=== PATIENT | male | born 1950 | race Asian ===

== ENCOUNTER 2018-11-02 18:50 | Inpatient (IN) | payer OTHER ==
[~2018-11-02 18:50] MED LIST: Aspirin 81 mg Enteric Coated Tablet ONE; Heparin 10,000 UNITS/ 10 ML VIAL ONE; Iopamidol 370 76% 100 ML VIAL ONE; Metoprolol Tartrate 5 MG/5 ML VIAL ONE; Nitroglycerin 0.4 MG TAB 1 EACH ONE; Nitroglycerin 50 MG/250 ML BOT ONE
[2018-11-02] MEDS ORDERED: Furosemide 40 MG/4 ML VIAL ONE ×2 (19:11)
[2018-11-02 19:12] LABS: Actual Bicarbonate (HCO3a) 19.8 mEq/L (22-28); Analyzer IN Cardio ER; Base Excess (BEa) -9.8 mEq/L (-2.0 to +3.0); CO2 Tension 58.6 mmHg (35.0-45.0); Carboxyhemoglobin (COHb) 0.4 gm% (0.0-3.0); Hemoglobin (Hb) 15.2 g/dL (14.0-18.0); O2 Tension (PaO2) 81.2 mmHg (> 80.0); Potassium - ABG Lab 4.26 mmol/L (3.70-5.30)
[2018-11-02 19:13] LABS: Puncture Site LRA; pH, Arterial 7.15 (7.35-7.45)
[2018-11-02] MEDS ORDERED: Succinylcholine Chloride 20 MG/ML 10 ml SYRINGE FS ONE (19:16)
--- NOTE | 2018-11-02 19:18 | RAD ---
XR Chest 1 View Portable History: Chest pain Comparison: None. Findings: Extensive opacities throughout the lungs, greater on the left. Defibrillator pad projects o olena the right hemithorax. Small effusions. Heart size is enlarged. Dense calcifications of the aorta. There appears to be elevation of the right minor fissure. Abnormal fullness right hilum. Abnormal asy mmetric soft tissue density projects over the right lung apex. Impression: 1. Asymmetric airspace opacities, greater in the left lung, may reflect asymmetric edema or severe pn eumonia. Hemorrhage is also possibility. 2. Abnormal fullness of the right hilum with elevation of the minor fissure and thickening of the rig ht lung apex. Underlying mass is of concern. Nonemergent follow-up chest CT recommended. 3. Possible right peripheral pleural calcified plaques.
[2018-11-02 19:25] LABS: #Basophils 0.1 thou/uL (0.0-0.2); #Eosinphils 0.5 thou/uL (0.0-0.7); #Lymphocytes 5.9 thou/uL (1.20-3.40); #Monocytes 0.9 thou/uL (0.11-0.59); #Neutrophils 5.3 thou/uL (1.40-6.50); %Basophils 0.8 % (0.0-1.0); %Eosinophils 3.7 % (0.0-10.0); %Lymphocytes 46.7 % (21.0-51.0); %Monocytes 7.4 % (0.0-10.0); %Neutrophils 41.4 % (42.0-75.0); Hemoglobin 14.7 g/dL (14.0-18.0); Mean Corpuscular HGB CONC 33.2 g/dL (32.0-36.0); Mean Corpuscular Volume 87.2 fL (78.0-98.0); Mean Platelet Volume 6.8 fL (7.4-10.4); Platelet Count 390 thou/uL (130-400); Red Blood Cell (RBC) Count 5.06 mill/uL (4.70-6.10); White Blood Cell (WBC) Count 12.7 thou/uL (4.8-10.8)
[2018-11-02 19:31] LABS: PTT 29.5 SEC (22.9-36.1); Prothrombin Time 13.2 SEC (12.0-14.7)
[2018-11-02] MEDS ORDERED: fentaNYL Citrate/PF 2,000 MCG in Sodium Chloride 0.9% 60 ML IV SCH ×2 (19:35→21:00)
[2018-11-02] MEDS ORDERED: Fentanyl 100 MCG/2 ML VIAL ONE ×4 (19:38→20:17)
--- NOTE | 2018-11-02 19:48 | RAD ---
XR Chest 1 View Portable History: Intubation Comparison: Radiograph same day Findings: Patient is intubated with endotracheal tube tip at the level of clavicles. Remainder the fi ndings are unchanged. Impression: Enteric tube tip at the level of the clavicles.
[2018-11-02 19:49] LABS: ALT (SGPT) 16 U/L (8-55); AST (SGOT) 19 U/L (5-34); Albumin 4.2 g/dL (3.4-4.8); Alkaline Phosphatase 93 U/L (40-150); Anion Gap 15 mmol/L (10-20); BUN (Urea Nitrogen) 31 mg/dL (8.4-25.7); Bilirubin, Total 0.7 mg/dL (0.2-1.2); CK (CPK) 64 U/L (30-200); Calc. Creatinine Clearance 0 mL/min (70-130); Calcium 9.3 mg/dL (7.8-10.44); Carbon Dioxide 19 mmol/L (23-31); Chloride 106 mmol/L (98-107); Estimated GFR-MDRD 19; Glucose 217 mg/dL (80-115); Potassium 4.2 mmol/L (3.5-5.1); Protein, Total 8.2 g/dL (5.8-8.1); Sodium 136 mmol/L (136-145)
--- NOTE | 2018-11-02 20:14 | HP ---
HISTORY: Mr. Painting is a 68-year-old male from [place], who does not speak [place]. The son states that earlier today he was complaining of shortness of breath, and then, he started to have chest pressure and dramatic worsening of his shortness of breath accompanied with diaphoresis. He came to the emergency room. He has had systolic pressures in the 230 range, heart rate of 100, diaphoretic. Thus far, he has been started on intravenous nitroglycerin, given Lopressor 5 mg IV, aspirin, and started on heparin drip. PAST MEDICAL HISTORY: Hypertension, apparently no history of diabetes or hypercholesterolemia. MEDICATIONS: Amlodipine 10 mg daily. ALLERGIES: NONE KNOWN. PAST SURGICAL HISTORY: Appendectomy. SOCIAL HISTORY: He is a former smoker. REVIEW OF SYSTEMS: Unobtainable with the critical illness of this patient at this time. PHYSICAL EXAMINATION: VITAL SIGNS: Blood pressure down to 180/100, pulse of 100. GENERAL: Elderly gentleman in respiratory distress, profusely diaphoretic. HEENT: PERRL. CHEST: Reveals bilateral crackles. CARDIOVASCULAR: S1 and S2 normal without any S3, S4, or murmurs. ABDOMEN: Normal bowel sounds without tenderness or organomegaly. EXTREMITIES: Revealed no clubbing, cyanosis, or edema. NEUROLOGICAL: Grossly intact. LABORATORY DATA: PH of 7.15, pCO2 of 58.6, pO2 of 81.2. IMAGING STUDIES: EKG reveals sinus tachycardia with left ventricular hypertrophy with strain pattern. Also, there is a [address]-segment elevation in III and F. Chest x-ray reveals pulmonary edema, greater on the left. IMPRESSION: 1. Pulmonary edema. 2. Inferior ST-elevation myocardial infarction. 3. Hypertension. 4. Former smoker. PLAN: The patient will be maintained on intravenous heparin. With his inferior EKG changes, it was felt that he should go to the microbiological laboratory technician emergently for STEMI. However, I do not feel he could adequately lie flat, and he is acidotic at the present time and will be intubated prior to going to the microbiological laboratory technician. Situation has been discussed with the patient's son of cardiac catheterization and its risks including , myocardial infarction, emergent CABG, restenosis, bleeding, kidney damage, allergic reaction to contrast, restenosis, etc. It was explained to him multiple times that his father is acutely ill and certainly may not survive this insult. Job ID: [id number]
[2018-11-02] MEDS ORDERED: Heparin 10,000 UNITS/ 10 ML VIAL SLOW IVP SCH ×2 (20:15→22:30)
[2018-11-02] MEDS ORDERED: Ventilator Sedation Protocol 1 EACH FS SCH (20:16)
[2018-11-02] MEDS ORDERED: Sodium Chloride 0.9% 200 ML IV PRN (20:24)
[2018-11-02] MEDS ORDERED: Acetaminophen/Codeine 30-300mg Tablet PO PRN ×2 (20:24)
[2018-11-02] MEDS ORDERED: Nitroglycerin 0.4 MG TAB (25 Tab Bottle) SL PRN (20:24)
[2018-11-02] MEDS ORDERED: Sodium Chloride 0.9% 1,000 ML IV SCH (20:30)
[2018-11-02] MEDS: Nitroglycerin 50 MG/250 ML BOT 250 ML IVPB SCH (20:35)
[2018-11-02] MEDS ORDERED: Propofol 1,000 MG/100 ML VIAL IV ONE (20:41)
[2018-11-02 20:53] LABS: Actual Bicarbonate (HCO3a) 18.1 mEq/L (22-28); Base Excess (BEa) -9.5 mEq/L (-2.0 to +3.0); CO2 Tension 46.2 mmHg (35.0-45.0); Calcium, Ionized 1.07 mmol/L (1.12-1.30); Carboxyhemoglobin (COHb) 0.4 gm% (0.0-3.0); Hemoglobin (Hb) 12.5 g/dL (14.0-18.0); Potassium - ABG Lab 5.17 mmol/L (3.70-5.30)
[2018-11-02] MEDS ORDERED: DISCONTINUE PREVIOUS NARCOTIC PAIN MEDICATIONS AND BENZODIAZEPINES FS SCH (21:00)
[2018-11-02] MEDS ORDERED: Fentanyl BOLUS 250 ML IVPB PRN (21:00)
[2018-11-02] MEDS ORDERED: Propofol BOLUS 1,000 MG/100 ML VIAL IV PRN (21:00)
[2018-11-02 21:01] LABS: O2 Tension (PaO2) 597.7 mmHg (> 80.0); Puncture Site LINE; pH, Arterial 7.21 (7.35-7.45)
[2018-11-02] MEDS ORDERED: Vecuronium 10 MG VIAL IV PRN (21:28)
[2018-11-02] MEDS: Heparin 25,000 units/D5W 500 ML IV SCH (22:28)
[2018-11-03 01:53] LABS: PTT Greater than 250.0 SEC (22.9-36.1)
[2018-11-03 04:44] LABS: Hemoglobin A1c 6.6 % (4.0-6.0)
[2018-11-03 04:59] LABS: #Lymphocytes 2.3 thou/uL (1.20-3.40); #Monocytes 0.7 thou/uL (0.11-0.59); #Neutrophils 5.2 thou/uL (1.40-6.50); %Basophils 0.1 % (0.0-1.0); %Eosinophils 0.5 % (0.0-10.0); %Lymphocytes 27.7 % (21.0-51.0); %Monocytes 8.8 % (0.0-10.0); %Neutrophils 62.9 % (42.0-75.0); Hemoglobin 11.5 g/dL (14.0-18.0); Mean Corpuscular HGB CONC 35.4 g/dL (32.0-36.0); Mean Corpuscular Hemoglobin 30.4 pg (27.0-31.0); Mean Corpuscular Volume 85.9 fL (78.0-98.0); Mean Platelet Volume 6.5 fL (7.4-10.4); Platelet Count 267 thou/uL (130-400); Red Blood Cell (RBC) Count 3.78 mill/uL (4.70-6.10); White Blood Cell (WBC) Count 8.2 thou/uL (4.8-10.8)
[2018-11-03 05:00] LABS: Anion Gap 13 mmol/L (10-20); BUN (Urea Nitrogen) 33 mg/dL (8.4-25.7); Calc. Creatinine Clearance 22 mL/min (70-130); Carbon Dioxide 20 mmol/L (23-31); Cardiac Risk 6.1 (Less than 4.5); Chloride 108 mmol/L (98-107); Cholesterol 207 mg/dl (< 200 Desired); Estimated GFR-MDRD 22; Glucose 112 mg/dL (80-115); HDL Cholesterol 34 mg/dL (>60 Neg Risk); LDL Cholesterol, Calculated 126 mg/dL; Sodium 137 mmol/L (136-145); Triglycerides 236 mg/dL (Less than 150)
[2018-11-03] MEDS: Propofol 1,000 MG/100 ML VIAL IV PRN ×4 (05:06→22:20)
[2018-11-03 07:33] LABS: Actual Bicarbonate (HCO3a) 20.6 mEq/L (22-28); Base Excess (BEa) -2.3 mEq/L (-2.0 to +3.0); CO2 Tension 29.5 mmHg (35.0-45.0); Carboxyhemoglobin (COHb) 0.9 gm% (0.0-3.0); Hemoglobin (Hb) 11.1 g/dL (14.0-18.0); pH, Arterial 7.46 (7.35-7.45)
[2018-11-03 07:34] LABS: O2 Tension (PaO2) 45.6 mmHg (> 80.0); Puncture Site ALINE
[2018-11-03 07:35] LABS: ALV-art Gradient 202.725 (0-20)
--- NOTE | 2018-11-03 07:50 | RAD ---
Chest one view: HISTORY: Respiratory insufficiency COMPARISON: 11/02/2018 FINDINGS: NG tube and endotracheal tubes in position. Homogeneously dense appearance to the left chest probably a combination of alveolar edema and pleural effusion. Stable appearing changes in the right chest. IMPRESSION: Extensive pulmonary parenchymal changes throughout the left lung with stable appearance to the right chest. Continued short-term follow-up.
[2018-11-03] MEDS ORDERED: Prevnar 13-Val Conj/PF 0.5 ML SYRINGE IM ONE (09:00)
[2018-11-03] MEDS: cefTRIAXone\\ROCEPHIN 2 GM in Sodium Chloride 0.9% 100 ML IVPB SCH (10:07)
--- NOTE | 2018-11-03 10:12 | CON ---
DATE OF CONSULTATION: HISTORY OF PRESENT ILLNESS: Mr. Painting is a 68-year-old male, who has been feeling poorly for a couple of days according to his son. He presented to the emergency department, was found to have ST elevation on EKG as well as significant hypertension. He was taken to the cardiac cath lab radiology technologist. He required intubation. He is sedated for mechanical ventilation. PAST MEDICAL HISTORY: Remarkable for hypertension, on amlodipine and appendectomy. He is a former smoker, not a daily drinker. He had a wedge resection of a nodule in his right lung in 1987 that was benign. ALLERGIES: HE HAS NO REPORTED DRUG ALLERGIES. REVIEW OF SYSTEMS: Not obtainable. PHYSICAL EXAMINATION: VITAL SIGNS: Blood pressure is 137/70, heart rate is in the 60s, respiratory rate is 24, oximetry is 100%. HEENT: Pupils are equal. Sclerae are anicteric. NECK: Supple. LUNGS: Clear. HEART: Regular rhythm. S1 and S2 are normal. ABDOMEN: Soft and nontender. EXTREMITIES: Without clubbing, cyanosis, or edema. NEUROLOGIC: Grossly nonfocal. IMAGING STUDIES: Chest radiograph shows asymmetric alveolar infiltrates fairly dense on the left. IMPRESSION AND PLAN: 1. Pneumonia. It is an atypical presentation for pulmonary hemorrhage or pulmonary edema. We cultured an endotracheal aspirate, and start him on Rocephin. 2. Myocardial infarction with coronary artery disease. His son says it is not something that can be addressed with surgery per his discussion with Dr. Huston last night. I reviewed the case with Dr. Huston. We will continue with antibiotics and mechanical ventilation for now. Gentle diuresis is reasonable. If his radiograph dramatically improves on a daily basis, I would argue against this being an infectious infiltrate. Job ID: [id number]
[2018-11-03 10:59] LABS: Troponin I 0.916 ng/mL (< 0.028)
[2018-11-03 15:23] LABS: Troponin I 0.939 ng/mL (< 0.028)
[2018-11-03] MEDS: Lorazepam 2 MG/ML VIAL SLOW IVP PRN ×2 (15:59→23:06)
[2018-11-03] MEDS: Carvedilol 3.125 MG TAB PER TUBE SCH (16:41)
[2018-11-04 05:19] LABS: #Eosinphils 0.3 thou/uL (0.0-0.7); #Lymphocytes 2.8 thou/uL (1.20-3.40); #Monocytes 0.9 thou/uL (0.11-0.59); #Neutrophils 5.6 thou/uL (1.40-6.50); %Basophils 0.3 % (0.0-1.0); %Eosinophils 3.1 % (0.0-10.0); %Lymphocytes 28.9 % (21.0-51.0); %Monocytes 9.5 % (0.0-10.0); %Neutrophils 58.1 % (42.0-75.0); Mean Corpuscular HGB CONC 34.9 g/dL (32.0-36.0); Mean Corpuscular Hemoglobin 29.7 pg (27.0-31.0); Mean Platelet Volume 7.1 fL (7.4-10.4); Platelet Count 260 thou/uL (130-400); RBC Distribution Width 12.1 % (11.5-14.5); Red Blood Cell (RBC) Count 3.69 mill/uL (4.70-6.10); White Blood Cell (WBC) Count 9.6 thou/uL (4.8-10.8)
[2018-11-04 05:37] LABS: Anion Gap 18 mmol/L (10-20); BUN (Urea Nitrogen) 34 mg/dL (8.4-25.7); Calc. Creatinine Clearance 21 mL/min (70-130); Calcium 7.9 mg/dL (7.8-10.44); Carbon Dioxide 20 mmol/L (23-31); Chloride 107 mmol/L (98-107); Estimated GFR-MDRD 21; Glucose 111 mg/dL (80-115); Potassium 3.5 mmol/L (3.5-5.1); Sodium 141 mmol/L (136-145)
[2018-11-04 05:48] LABS: Band 2 % (5-11); Hypochromia SLIGHT = 6-15 cells (100X) (0-5/hpf); Lymphocytes 22 % (21-51); MDiff Complete? YES; Mean Corpuscular HGB CONC 34.1 g/dL (32.0-36.0); Mean Corpuscular Hemoglobin 29.3 pg (27.0-31.0); Mean Corpuscular Volume 86.1 fL (78.0-98.0); Mean Platelet Volume 7.2 fL (7.4-10.4); Monocytes 2 % (0-10); Neutrophil 74 % (42-75); Platelet Count 279 thou/uL (130-400); Platelet Morphology Comment Appears Adequate; RBC Distribution Width 12.1 % (11.5-14.5); Red Blood Cell (RBC) Count 3.73 mill/uL (4.70-6.10); White Blood Cell (WBC) Count 9.5 thou/uL (4.8-10.8)
--- NOTE | 2018-11-04 06:26 | RAD ---
CHEST ONE VIEW: INDICATIONS: Daily CCU examination. COMPARISON: 11/03/2018 IMPRESSION: Gastric catheter and ET tube tip are unchanged. Pulmonary parenchymal changes involving the left jessica g slightly improved. Residual opacities remain within the left lower lobe. No definite pneumothorax is evident. Continued followup is recommended. POS: BH
[2018-11-04 07:31] LABS: Actual Bicarbonate (HCO3a) 19.2 mEq/L (22-28); Base Excess (BEa) -2.2 mEq/L (-2.0 to +3.0); Calcium, Ionized 1.02 mmol/L (1.12-1.30); Carboxyhemoglobin (COHb) 0.4 gm% (0.0-3.0); Hemoglobin (Hb) 11.5 g/dL (14.0-18.0); Potassium - ABG Lab 3.34 mmol/L (3.70-5.30); pH, Arterial 7.52 (7.35-7.45)
[2018-11-04 07:33] LABS: CO2 Tension 23.8 mmHg (35.0-45.0); O2 Tension (PaO2) 56.3 mmHg (> 80.0); Puncture Site ALINE
[2018-11-04] MEDS: Propofol 1,000 MG/100 ML VIAL IV PRN ×3 (08:39→23:17)
[2018-11-04] MEDS: Lorazepam 2 MG/ML VIAL SLOW IVP PRN ×2 (08:39→12:18)
[2018-11-04] MEDS: Carvedilol 3.125 MG TAB PER TUBE SCH ×2 (08:39→17:28)
[2018-11-04] MEDS: cefTRIAXone\\ROCEPHIN 2 GM in Sodium Chloride 0.9% 100 ML IVPB SCH (10:52)
[2018-11-04] MEDS: Heparin 25,000 units/D5W 500 ML IV SCH (10:58)
[2018-11-04] MEDS ORDERED: Pantoprazole 40 MG VIAL IVP SCH (12:00)
[2018-11-04] MEDS: Atorvastatin Calcium 40 MG TAB PER TUBE SCH (21:55)
--- NOTE | 2018-11-04 22:15 | PRG ---
DATE OF SERVICE: 11/04/2018 SUBJECTIVE: Mr. Painting's gas exchange is improving. Hemodynamically, he has been stable. He is afebrile, heart rate in the 70s, blood pressure 137/88, respiratory rate is 20. A specimen for sputum culture was ordered the day before yesterday, but I do not see where this is pending in the computer. OBJECTIVE: LUNGS: Clear. HEART: Regular rhythm. S1 and S2 are normal. ABDOMEN: Soft and nontender without guarding or rigidity. EXTREMITIES: Without asymmetry. LABORATORY DATA: White count 9.5, hemoglobin 11.0, platelets 279. Sodium 141, potassium 3.5, chloride 107, bicarb 20, BUN 34, creatinine 3.02. PH CO2 23, pO2 56. His ventilatory rate has been turned down. His PEEP has been turned down. Chest x-ray reviewed by me shows significant improvement. IMPRESSION: Given his improvement in his radiograph, most likely his radiographic abnormalities are an atypical presentation for cardiogenic pulmonary edema. Tomorrow, we will probably do a spontaneous breathing trial. We will probably stop his IV antibiotics tomorrow as well. CRITICAL CARE TIME: 30 minutes. Job ID: [id number]
[2018-11-05 05:19] LABS: Band 1 % (5-11); Eosinophils 4 % (0-10); Lymphocytes 22 % (21-51); MDiff Complete? YES; Mean Corpuscular HGB CONC 33.9 g/dL (32.0-36.0); Mean Corpuscular Hemoglobin 29.8 pg (27.0-31.0); Mean Platelet Volume 7.2 fL (7.4-10.4); Monocytes 11 % (0-10); Neutrophil 62 % (42-75); Platelet Count 283 thou/uL (130-400); Platelet Morphology Comment Appears Adequate; RBC Distribution Width 12.3 % (11.5-14.5); White Blood Cell (WBC) Count 9.9 thou/uL (4.8-10.8)
[2018-11-05 05:28] LABS: Anion Gap 17 mmol/L (10-20); BUN (Urea Nitrogen) 29 mg/dL (8.4-25.7); Calc. Creatinine Clearance 21 mL/min (70-130); Calcium 8.1 mg/dL (7.8-10.44); Carbon Dioxide 19 mmol/L (23-31); Chloride 107 mmol/L (98-107); Estimated GFR-MDRD 21; Glucose 98 mg/dL (80-115); Potassium 3.6 mmol/L (3.5-5.1); Sodium 139 mmol/L (136-145)
[2018-11-05 07:17] LABS: Actual Bicarbonate (HCO3a) 16.9 mEq/L (22-28); Base Excess (BEa) -5.8 mEq/L (-2.0 to +3.0); Calcium, Ionized 0.99 mmol/L (1.12-1.30); Carboxyhemoglobin (COHb) 0.3 gm% (0.0-3.0); Hemoglobin (Hb) 12.3 g/dL (14.0-18.0); O2 Tension (PaO2) 64.4 mmHg (> 80.0); Potassium - ABG Lab 3.62 mmol/L (3.70-5.30); pH, Arterial 7.43 (7.35-7.45)
[2018-11-05 07:23] LABS: Puncture Site ALINE
--- NOTE | 2018-11-05 07:44 | RAD ---
CHEST 1 VIEW: INDICATION: Intubation. COMPARISON: Prior exam dated 11/04/2018. FINDINGS: ET tube and gastric catheter are unchanged. Interstitial airspace opacities persist within the left lung. No pneumothorax is evident. The patient remains rotated slightly limiting exam. IMPRESSION: Stable exam. POS: BH
[2018-11-05] MEDS: Pantoprazole 40 MG VIAL IVP SCH (08:35)
[2018-11-05] MEDS: Carvedilol 6.25 MG TAB PER TUBE SCH ×2 (08:35→17:24)
[2018-11-05] MEDS: cefTRIAXone\\ROCEPHIN 2 GM in Sodium Chloride 0.9% 100 ML IVPB SCH (08:43)
[2018-11-05] MEDS: Propofol 1,000 MG/100 ML VIAL IV PRN ×2 (08:43→15:27)
[2018-11-05] MEDS: Sodium Chloride 0.9% (PF) 10 ML VIAL FS SCH (08:44)
[2018-11-05 09:45] LABS: Actual Bicarbonate (HCO3a) 15.8 mEq/L (22-28); Base Excess (BEa) -8.6 mEq/L (-2.0 to +3.0); CO2 Tension 30.1 mmHg (35.0-45.0); Calcium, Ionized 1.01 mmol/L (1.12-1.30); Hemoglobin (Hb) 13.6 g/dL (14.0-18.0); Potassium - ABG Lab 3.83 mmol/L (3.70-5.30); pH, Arterial 7.34 (7.35-7.45)
[2018-11-05 09:47] LABS: ALV-art Gradient 268.575 (0-20); O2 Tension (PaO2) 50.3 mmHg (> 80.0); Puncture Site ALINE
[2018-11-05] MEDS ORDERED: Furosemide 40 MG/4 ML VIAL IVP SCH (10:57)
--- NOTE | 2018-11-05 11:19 | PRG ---
DATE OF SERVICE: 11/05/2018 SUBJECTIVE: Mr. Painting was given a sedation holiday, this morning became hypertensive and developed clinical findings consistent with pulmonary edema, so he was re-sedated. His ventilator was adjusted to pressure control ventilation. OBJECTIVE: VITAL SIGNS: Currently, his blood pressure 116/60, heart rate 87, and respiratory rates in the 20s. LUNGS: Remarkable for rhonchi bilaterally. HEART: Regular rhythm. S1 and S2 are normal. ABDOMEN: Soft and nontender. EXTREMITIES: Without clubbing, cyanosis, or edema. LABORATORY DATA: White count 9.9, hemoglobin 11.0, platelets 283. Sodium 139, potassium 3.6, chloride 107, bicarb 19, BUN 29, and creatinine 2.99. IMPRESSION: 1. Congestive heart failure. 2. Inoperable coronary artery disease. 3. ST-elevation myocardial infarction. 4. Chronic kidney disease, likely related to vascular disease. 5. Diabetes. I met with the family, answered all their questions. We will try probably in the morning placing him on a Cardene drip before we give him a sedation holiday to see if we can control his blood pressure and facilitate weaning that way. Intake and output coming in today was positive 327. He probably benefit from a dose of Lasix this morning. Job ID: [id number]
[2018-11-05] MEDS: Lorazepam 2 MG/ML VIAL SLOW IVP PRN ×2 (13:24→21:48)
[2018-11-05] MEDS: Morphine 2 MG/ML SYRINGE SLOW IVP PRN (15:27)
[2018-11-05] MEDS: Atorvastatin Calcium 40 MG TAB PER TUBE SCH (20:12)
[2018-11-06] MEDS: Propofol 1,000 MG/100 ML VIAL IV PRN ×4 (00:53→20:22)
[2018-11-06 06:25] LABS: Anion Gap 24 mmol/L (10-20); BUN (Urea Nitrogen) 34 mg/dL (8.4-25.7); Calc. Creatinine Clearance 18 mL/min (70-130); Calcium 8.3 mg/dL (7.8-10.44); Carbon Dioxide 15 mmol/L (23-31); Chloride 104 mmol/L (98-107); Estimated GFR-MDRD 18; Glucose 110 mg/dL (80-115); Potassium 3.6 mmol/L (3.5-5.1); Sodium 139 mmol/L (136-145)
[2018-11-06 06:30] LABS: Hemoglobin 11.1 g/dL (14.0-18.0); Mean Corpuscular HGB CONC 35.2 g/dL (32.0-36.0); Mean Corpuscular Hemoglobin 30.6 pg (27.0-31.0); Mean Corpuscular Volume 86.9 fL (78.0-98.0); Mean Platelet Volume 7.1 fL (7.4-10.4); Platelet Count 273 thou/uL (130-400); Red Blood Cell (RBC) Count 3.62 mill/uL (4.70-6.10); White Blood Cell (WBC) Count 8.4 thou/uL (4.8-10.8)
[2018-11-06 06:34] LABS: Band 2 % (5-11); Eosinophils 7 % (0-10); Lymphocytes 19 % (21-51); MDiff Complete? YES; Monocytes 11 % (0-10); Neutrophil 61 % (42-75)
[2018-11-06 07:04] LABS: Actual Bicarbonate (HCO3a) 13.1 mEq/L (22-28); Base Excess (BEa) -7.7 mEq/L (-2.0 to +3.0); Calcium, Ionized 1.06 mmol/L (1.12-1.30); Carboxyhemoglobin (COHb) 0.4 gm% (0.0-3.0); Hemoglobin (Hb) 11.4 g/dL (14.0-18.0); O2 Tension (PaO2) 209.9 mmHg (> 80.0); Potassium - ABG Lab 3.51 mmol/L (3.70-5.30); pH, Arterial 7.51 (7.35-7.45)
[2018-11-06 07:12] LABS: CO2 Tension 16.9 mmHg (35.0-45.0); Puncture Site RRA
[2018-11-06 07:13] LABS: ALV-art Gradient 125.475 (0-20)
--- NOTE | 2018-11-06 07:54 | RAD ---
Chest AP view INDICATION: Chest pain COMPARISON: November 05, 2018 FINDINGS: Lungs:There is improvement in the bilateral perihilar opacities, left greater than right. Cardiac silhouette:The cardiomediastinal silhouette appears within normal limits. Pulmonary vasculature:Normal Pleural spaces:No pleural effusion or pneumothorax is demonstrated. Upper abdomen:No abnormality seen. Osseous structures: No acute osseous abnormality. Additional findings:ET tube and gastric catheter unchanged. IMPRESSION: Improving bilateral perihilar opacities. Continued follow-up is recommended
[2018-11-06] MEDS: cefTRIAXone\\ROCEPHIN 2 GM in Sodium Chloride 0.9% 100 ML IVPB SCH (08:05)
[2018-11-06] MEDS: Carvedilol 6.25 MG TAB PER TUBE SCH ×2 (08:06→16:55)
[2018-11-06] MEDS: Pantoprazole 40 MG VIAL IVP SCH (08:06)
[2018-11-06] MEDS: Sodium Chloride 0.9% (PF) 10 ML VIAL FS SCH (08:07)
[2018-11-06] MEDS: Aspirin 325 MG TAB PER TUBE SCH (09:08)
--- NOTE | 2018-11-06 19:54 | PRG ---
DATE OF SERVICE: 11/06/2018 SUBJECTIVE: Mr. Painting remains intubated. OBJECTIVE: VITAL SIGNS: Blood pressures have been stable, heart rate in the 80s, respiratory rate in the teens, and oximetry is in the high 90s. LUNGS: Clear anteriorly. HEART: Regular rhythm. ABDOMEN: Soft. EXTREMITIES: Without edema. LABORATORY DATA: White count 8.4, hemoglobin 11.1, platelets 273. A pH this morning 7.51, CO2 of 17, and pO2 of 209. His pressure ventilated and with pressure control, his tidal volumes had increased overnight as he was diuresing and having which led to improve pulmonary compliance. His creatinine is 3.43 today, was 3.02 two days ago. Chest radiograph shows minimal pulmonary edema. IMPRESSION: 1. Congestive heart failure with respiratory failure. 2. Inoperable coronary artery disease. 3. Chronic kidney disease, likely related to renovascular disease. 4. Severe aortoiliac disease. PLAN: We will probably continue decreased ventilatory support and proceed slowly. If we can get him where he is comfortable on Precedex and not hypertensive, we would consider weaning and extubation. His prognosis is quite guarded. Job ID: [id number]
[2018-11-06] MEDS: Atorvastatin Calcium 40 MG TAB PER TUBE SCH (22:00)
[2018-11-07] MEDS: Propofol 1,000 MG/100 ML VIAL IV PRN ×2 (02:23→06:35)
[2018-11-07 05:27] LABS: Band 3 % (5-11); Eosinophils 7 % (0-10); Hemoglobin 11.9 g/dL (14.0-18.0); Lymphocytes 23 % (21-51); MDiff Complete? YES; Mean Corpuscular HGB CONC 34.1 g/dL (32.0-36.0); Mean Corpuscular Hemoglobin 30.3 pg (27.0-31.0); Mean Corpuscular Volume 88.7 fL (78.0-98.0); Mean Platelet Volume 6.9 fL (7.4-10.4); Monocytes 10 % (0-10); Neutrophil 57 % (42-75); Platelet Count 299 thou/uL (130-400); Platelet Morphology Comment Appears Adequate; Red Blood Cell (RBC) Count 3.95 mill/uL (4.70-6.10); White Blood Cell (WBC) Count 9.1 thou/uL (4.8-10.8)
[2018-11-07 05:32] LABS: Anion Gap 23 mmol/L (10-20); BUN (Urea Nitrogen) 37 mg/dL (8.4-25.7); Calc. Creatinine Clearance 20 mL/min (70-130); Calcium 9.1 mg/dL (7.8-10.44); Carbon Dioxide 15 mmol/L (23-31); Chloride 107 mmol/L (98-107); Estimated GFR-MDRD 19; Glucose 88 mg/dL (80-115); Potassium 4.1 mmol/L (3.5-5.1); Sodium 141 mmol/L (136-145)
[2018-11-07 06:43] LABS: Actual Bicarbonate (HCO3a) 15.9 mEq/L (22-28); Base Excess (BEa) -8.6 mEq/L (-2.0 to +3.0); CO2 Tension 29.9 mmHg (35.0-45.0); Calcium, Ionized 1.13 mmol/L (1.12-1.30); Carboxyhemoglobin (COHb) 0.4 gm% (0.0-3.0); Hemoglobin (Hb) 11.4 g/dL (14.0-18.0); O2 Tension (PaO2) 73.4 mmHg (> 80.0); Potassium - ABG Lab 3.97 mmol/L (3.70-5.30); Puncture Site RRA; pH, Arterial 7.34 (7.35-7.45)
[2018-11-07 06:44] LABS: ALV-art Gradient 174.425 (0-20)
[2018-11-07] MEDS: Aspirin 325 MG TAB PER TUBE SCH (07:48)
[2018-11-07] MEDS: Carvedilol 6.25 MG TAB PER TUBE SCH ×2 (07:48→16:56)
[2018-11-07] MEDS: Nitroglycerin 50 MG/250 ML BOT 250 ML IVPB SCH (07:48)
[2018-11-07] MEDS: Pantoprazole 40 MG VIAL IVP SCH (07:49)
[2018-11-07] MEDS: Sodium Chloride 0.9% (PF) 10 ML VIAL FS SCH (07:49)
[2018-11-07] MEDS: cefTRIAXone\\ROCEPHIN 2 GM in Sodium Chloride 0.9% 100 ML IVPB SCH (09:25)
--- NOTE | 2018-11-07 09:37 | RAD ---
Exam: Chest one view: HISTORY: Respiratory insufficiency, patient on ventilator COMPARISON: 11/06/2018 FINDINGS: Fairly extensive pleural and parenchymal opacity changes in the right chest since the prior study wit h marked new volume loss raising concern for new right-sided atelectasis. Increased markings in the left chest and evidence for some vascular congestion probably mild interstitial edema. NG tube and en dotracheal tubes are stable. IMPRESSION: New extensive right-sided volume loss evidence for atelectasis with chronic pleural and parenchymal c hanges. Increased interstitial markings in the left chest raising concern for some developing interstitial ed kavita. CODE T
--- NOTE | 2018-11-07 18:05 | PRG ---
DATE OF SERVICE: 11/07/2018 SUBJECTIVE: Malini Painting has done well this morning. He was placed on Precedex and then as he awakened his blood pressure gradually started increasing and his sats started dropping. His nurse, Niranjan astutely started him on nitroglycerin drip and cranked up this dose which led to stabilization of all of his vital signs. His hemodynamics have been stable this afternoon. OBJECTIVE: VITAL SIGNS: His blood pressure 116/82, heart rate 88, respiratory rate 17, oximetry is 94. LUNGS: Clear. HEART: Regular rhythm. ABDOMEN: Soft. LABORATORY DATA: White count 9.1, hemoglobin 11.9, platelets 299. Sodium 141, potassium 4.1, chloride 107, bicarb 15, BUN 37, and creatinine 3.21. IMPRESSION: 1. Severe coronary artery disease. 2. Severe peripheral vascular disease. 3. Congestive heart failure leading to intubation. I met with his son and answered all of his questions. He actually may have a mucus plug on today's chest radiograph, but we will continue with current mechanical ventilation with a minimum of pressure support and PEEP. If he has a good 24 hours, then we will consider extubation. He may require therapeutic suctioning prior to extubation if his radiographic abnormalities are persistent tomorrow. CRITICAL CARE TIME: 30 minutes. Job ID: [id number]
[2018-11-07] MEDS: Atorvastatin Calcium 40 MG TAB PER TUBE SCH (20:21)
[2018-11-08] MEDS: Nitroglycerin 50 MG/250 ML BOT 250 ML IVPB SCH (04:37)
[2018-11-08 06:17] LABS: Band 5 % (5-11); Eosinophils 3 % (0-10); Hemoglobin 11.3 g/dL (14.0-18.0); Lymphocytes 16 % (21-51); MDiff Complete? YES; Mean Corpuscular HGB CONC 34.3 g/dL (32.0-36.0); Mean Corpuscular Hemoglobin 30.3 pg (27.0-31.0); Mean Corpuscular Volume 88.4 fL (78.0-98.0); Mean Platelet Volume 6.8 fL (7.4-10.4); Monocytes 14 % (0-10); Neutrophil 62 % (42-75); Platelet Count 324 thou/uL (130-400); Platelet Morphology Comment Appears Adequate; Red Blood Cell (RBC) Count 3.72 mill/uL (4.70-6.10); White Blood Cell (WBC) Count 9.8 thou/uL (4.8-10.8)
[2018-11-08 06:20] LABS: Anion Gap 23 mmol/L (10-20); BUN (Urea Nitrogen) 41 mg/dL (8.4-25.7); Calc. Creatinine Clearance 21 mL/min (70-130); Calcium 9.1 mg/dL (7.8-10.44); Carbon Dioxide 13 mmol/L (23-31); Chloride 109 mmol/L (98-107); Estimated GFR-MDRD 21; Glucose 122 mg/dL (80-115); Potassium 4.7 mmol/L (3.5-5.1); Sodium 140 mmol/L (136-145)
[2018-11-08 07:00] LABS: Actual Bicarbonate (HCO3a) 13.4 mEq/L (22-28); Base Excess (BEa) -11.2 mEq/L (-2.0 to +3.0); CO2 Tension 26.7 mmHg (35.0-45.0); Calcium, Ionized 1.18 mmol/L (1.12-1.30); Carboxyhemoglobin (COHb) 0.3 gm% (0.0-3.0); Hemoglobin (Hb) 11.1 g/dL (14.0-18.0); O2 Tension (PaO2) 71.9 mmHg (> 80.0); pH, Arterial 7.32 (7.35-7.45)
[2018-11-08 07:04] LABS: Puncture Site RRA
[2018-11-08 07:05] LABS: ALV-art Gradient 179.925 (0-20)
[2018-11-08] MEDS: Aspirin 325 MG TAB PER TUBE SCH (08:36)
[2018-11-08] MEDS: Carvedilol 6.25 MG TAB PER TUBE SCH ×2 (08:36→17:02)
[2018-11-08] MEDS: cefTRIAXone\\ROCEPHIN 2 GM in Sodium Chloride 0.9% 100 ML IVPB SCH (08:38)
[2018-11-08] MEDS: Pantoprazole 40 MG VIAL IVP SCH (08:38)
[2018-11-08] MEDS: Sodium Chloride 0.9% (PF) 10 ML VIAL FS SCH (08:42)
--- NOTE | 2018-11-08 09:49 | RAD ---
FRONTAL RADIOGRAPH CHEST: Date: 11/08/18 COMPARISON: 11/07/18. HISTORY: Ventilated patient. FINDINGS: Stable endotracheal tube and nasogastric tube. There is a lobulated dense pleural based opacity within the right hemithorax which has significantly worsened when compared to 11/06/18 and is similar when compared to 11/07/18. There is volume loss inv olving the right hemithorax. Left lung appears grossly unremarkable. IMPRESSION: Worsening lobulated pleural based opacity within the right hemithorax. This is similar when compared to 11/07/18 and significantly worsened since 11/06/18. CT chest may be beneficial to evaluate nonspec ific pleural based process within the right hemithorax. POS: OFF
[2018-11-08] MEDS ORDERED: methylPREDNISolone Sod Succ/PF 125 MG/2 ML VIAL IVP SCH (10:15)
[2018-11-08] MEDS: guaiFENesin ER 600 MG TAB PO SCH ×2 (12:03→17:02)
[2018-11-08] MEDS: Cefepime 1 GM in Sodium Chloride 0.9% 100 ML IVPB SCH (12:29)
--- NOTE | 2018-11-08 16:21 | PRG ---
DATE OF SERVICE: 11/08/2018 SUBJECTIVE: Mr. Painting evaluated this morning. He will awake and follow commands. Appears comfortable. He has not had a recurrent pulmonary edema, but he does have radiographic appearance of an effusion on the right, some atelectasis. I recommended bronchoscopy. OBJECTIVE: VITAL SIGNS: Blood pressure 107/77, heart rate 83, respiratory rate 16. Intake and outputs negative 314. HEART: Regular rhythm. ABDOMEN: Soft. LUNGS: Remarkable for rhonchi on the right. EXTREMITIES: Without clubbing, cyanosis, or edema. LABORATORY DATA: White count 9.8, hemoglobin 11.3, platelets 324. Sodium 140, potassium 4.7, chloride 109, bicarb 13, BUN 41, creatinine 3.02. PH of 7.32, CO2 of 26, pO2 of 71. IMPRESSION: 1. Respiratory failure secondary to coronary artery disease, myocardial infarction status post emergent cardiac catheterization. 2. Inoperable coronary artery disease. 3. Mild left ventricular systolic dysfunction and diastolic dysfunction. 4. Right pleural effusion ? versus atelectasis secondary to mucus plugging. 5. Severe peripheral vascular disease. I met with the son and answered all his questions. I recommended bronchoscopy. Son gave consent for that. Also recommended that he not be extubated. He has metabolic acidosis that is most likely the result of his renal insufficiency and chronic kidney disease and also probably has significant mucus plugging, which may make his work of breathing greater. He is status post pulmonary edema with discontinuing sedation. We have placed him on nitroglycerin and Precedex, which has kept his blood pressure controlled and we have avoided pulmonary edema for couple of days. He is on minimal ventilatory support. I will recommend a repeat radiograph in the morning and then reassessment for potential weaning, but depending on bronchoscopy, I felt weaning was not advisable and ensure enough he did have extensive right lung mucus plugging, which was sent for cultures. I changed antibiotics after the bronchoscopy. Job ID: [id number]
[2018-11-08] MEDS: Atorvastatin Calcium 40 MG TAB PER TUBE SCH (20:25)
[2018-11-08] MEDS ORDERED: Cefepime 1 GM in Sodium Chloride 0.9% 100 ML IVPB SCH (21:00)
[2018-11-09] MEDS: Cefepime 1 GM in Sodium Chloride 0.9% 100 ML IVPB SCH ×2 (00:36→13:07)
[2018-11-09] MEDS: guaiFENesin ER 600 MG TAB PO SCH ×4 (00:38→17:11)
[2018-11-09] MEDS: Nitroglycerin 50 MG/250 ML BOT 250 ML IVPB SCH (00:50)
[2018-11-09 06:07] LABS: Anion Gap 16 mmol/L (10-20); BUN (Urea Nitrogen) 48 mg/dL (8.4-25.7); Calc. Creatinine Clearance 21 mL/min (70-130); Carbon Dioxide 17 mmol/L (23-31); Chloride 109 mmol/L (98-107); Estimated GFR-MDRD 21; Glucose 236 mg/dL (80-115); Potassium 4.8 mmol/L (3.5-5.1); Sodium 137 mmol/L (136-145)
[2018-11-09 06:18] LABS: Band 5 % (5-11); Hemoglobin 10.2 g/dL (14.0-18.0); Lymphocytes 8 % (21-51); MDiff Complete? YES; Mean Corpuscular HGB CONC 34.5 g/dL (32.0-36.0); Mean Corpuscular Hemoglobin 29.8 pg (27.0-31.0); Mean Corpuscular Volume 86.6 fL (78.0-98.0); Mean Platelet Volume 7.2 fL (7.4-10.4); Monocytes 10 % (0-10); Neutrophil 77 % (42-75); Platelet Count 325 thou/uL (130-400); RBC Distribution Width 11.7 % (11.5-14.5); Red Blood Cell (RBC) Count 3.41 mill/uL (4.70-6.10); White Blood Cell (WBC) Count 9.1 thou/uL (4.8-10.8)
[2018-11-09] MEDS: Aspirin 325 MG TAB PER TUBE SCH (08:19)
[2018-11-09] MEDS: Carvedilol 6.25 MG TAB PER TUBE SCH ×2 (08:19→17:10)
[2018-11-09] MEDS: Pantoprazole 40 MG VIAL IVP SCH (08:19)
[2018-11-09] MEDS: Sodium Chloride 0.9% (PF) 10 ML VIAL FS SCH (08:20)
--- NOTE | 2018-11-09 09:15 | RAD ---
CHEST 1 VIEW: HISTORY: Ventilation, respiratory insufficiency. FINDINGS: There has been redevelopment of severe atelectasis of the right lung with very minimal residual aerat ed right lung. Hyperinflation of the left lung. Life support tubes remain in place. IMPRESSION: Redevelopment of almost total right lung atelectasis. Increased linear and interstitial markings thr oughout the left chest. Continue short-term followup. POS: YOLANDA
[2018-11-09] MEDS: Midazolam HCl 2 mg/2 ml Vial ONE ×2 (09:52→09:53)
[2018-11-09] MEDS ORDERED: Midazolam HCl 2 mg/2 ml Vial SLOW IVP SCH (10:00)
--- NOTE | 2018-11-09 10:35 | PRG ---
DATE OF SERVICE: 11/09/2018 TIME SPENT: 35 minutes critical time. SUBJECTIVE: The patient remains intubated on mechanical ventilation. There have been no acute changes overnight. OBJECTIVE: VITAL SIGNS: Temperature 99, pulse 94, blood pressure 122/84, O2 saturation 95%. Intake 1835. Output 1265. HEENT: Unremarkable. NECK: No adenopathy or JVD. LUNGS: Diminished breath sounds, right compared to left. CARDIAC: S1 and S2, tachycardic. ABDOMEN: Soft. EXTREMITIES: No edema. LABORATORY DATA: Sodium 137, potassium 4.8, chloride 109, CO2 of 17, BUN 48, creatinine 2.9, and glucose 236. IMAGING STUDIES: Chest x-ray showed extensive right-sided atelectasis. ASSESSMENT: 1. Acute respiratory failure requiring mechanical ventilation. 2. Right-sided atelectasis, status post bronchoscopy yesterday. 3. Status post myocardial infarction. 4. Status post shock. PLAN: The patient underwent bronchoscopy, see operative report. Of note, his trachea is extremely tortuous and it is very difficult to get his right upper lobe. Otherwise, I think he is probably close to extubation. If his x-ray still looks poorly tomorrow, may need a CT of the chest to further evaluate for right effusion. Plan bronchoscopy. Further disposition to follow. Job ID: [id number]
--- NOTE | 2018-11-09 10:39 | OP ---
DATE OF PROCEDURE: 11/09/2018 PROCEDURE PERFORMED: Bronchoscopy. PREOPERATIVE DIAGNOSIS: Right-sided mucus plugging. POSTOPERATIVE DIAGNOSIS: Right-sided mucus plugging. ANESTHESIA: Versed 4 mg IV. DESCRIPTION OF PROCEDURE: The patient had been previously intubated on mechanical ventilation. An adapter was placed on an endotracheal tube. An Ambu bronchoscope was placed down the endotracheal tube. Of note, the endotracheal tube was right at the roscoe. This was brought back about 1 cm. It was extremely difficult to enter his right mainstem bronchus because of a tortuous trachea. Once I got in, his right middle lobe and right lower lobe were easily identified. There were some mucus present, this was suctioned. The right upper lobe was very difficult to identify and likely is absent due to previous surgery. The procedure was tolerated well. Job ID: [id number] [facility]
[2018-11-09 19:30] LABS: Actual Bicarbonate (HCO3a) 17.7 mEq/L (22-28); Base Excess (BEa) -10.5 mEq/L (-2.0 to +3.0); CO2 Tension 48.1 mmHg (35.0-45.0); Calcium, Ionized 1.25 mmol/L (1.12-1.30); Carboxyhemoglobin (COHb) 0.4 gm% (0.0-3.0); Hemoglobin (Hb) 12.8 g/dL (14.0-18.0); Potassium - ABG Lab 4.94 mmol/L (3.70-5.30)
[2018-11-09] MEDS: Morphine 2 MG/ML SYRINGE SLOW IVP PRN (19:48)
[2018-11-09] MEDS: Lorazepam 2 MG/ML VIAL SLOW IVP PRN (19:48)
[2018-11-09 19:59] LABS: ALV-art Gradient 167.575 (0-20); O2 Tension (PaO2) 57.5 mmHg (> 80.0); Puncture Site LRA; pH, Arterial 7.18 (7.35-7.45)
[2018-11-09] MEDS ORDERED: Propofol BOLUS 1,000 MG/100 ML VIAL IV PRN (20:29)
[2018-11-09] MEDS ORDERED: Ventilator Sedation Protocol 1 EACH FS SCH (20:30)
[2018-11-09] MEDS: Propofol 1,000 MG/100 ML VIAL IV PRN (20:41)
[2018-11-09] MEDS: Atorvastatin Calcium 40 MG TAB PER TUBE SCH (21:35)
--- NOTE | 2018-11-09 22:17 | RAD ---
PORTABLE CHEST ONE VIEW: Date: 11-09-18 Time: 9:45 p.m. History: Respiratory failure. FINDINGS/IMPRESSION: Comparison with earlier exam of 5:35 a.m. The tip of the endotracheal tube is just below the level of the clavicular heads. Nasogastric tube ca n be traced into the stomach. Heart size is normal. There is interval improvement of the aeration of the right lung with small right pleural effusion and infiltrate in the right upper lobe. Patchy opaci ties in the left lung are again seen. POS: H
[2018-11-10] MEDS: guaiFENesin ER 600 MG TAB PO SCH ×4 (00:57→17:20)
[2018-11-10] MEDS: Cefepime 1 GM in Sodium Chloride 0.9% 100 ML IVPB SCH ×2 (00:57→12:45)
--- NOTE | 2018-11-10 01:09 | OP ---
DATE OF PROCEDURE: 11/09/2018 I was called around 7:30 p.m. stating that the patient was desaturating and it was suspected that he had a cuff leak on his endotracheal tube. I came to reintubate the patient. Upon inspection with a GlideScope, it appeared that the tube had migrated above the cords as the balloon was fully inflated in the oropharynx. I went ahead and replaced it with a 7.5 endotracheal tube as the previous tube had been taken insufflator. He was re-intubated without difficulty and placed back on mechanical ventilation. Job ID: [id number]
[2018-11-10] MEDS: Propofol 1,000 MG/100 ML VIAL IV PRN ×3 (04:56→17:58)
[2018-11-10 06:25] LABS: Anion Gap 14 mmol/L (10-20); BUN (Urea Nitrogen) 56 mg/dL (8.4-25.7); Calc. Creatinine Clearance 22 mL/min (70-130); Calcium 9.1 mg/dL (7.8-10.44); Carbon Dioxide 16 mmol/L (23-31); Chloride 112 mmol/L (98-107); Estimated GFR-MDRD 22; Glucose 196 mg/dL (80-115); Potassium 4.7 mmol/L (3.5-5.1); Sodium 137 mmol/L (136-145)
[2018-11-10 06:32] LABS: Band 12 % (5-11); Eosinophils 1 % (0-10); Hemoglobin 11.4 g/dL (14.0-18.0); Lymphocytes 15 % (21-51); MDiff Complete? YES; Mean Corpuscular HGB CONC 34.2 g/dL (32.0-36.0); Mean Corpuscular Hemoglobin 29.9 pg (27.0-31.0); Mean Corpuscular Volume 87.5 fL (78.0-98.0); Mean Platelet Volume 7.3 fL (7.4-10.4); Monocytes 6 % (0-10); Neutrophil 65 % (42-75); Platelet Count 357 thou/uL (130-400); RBC Distribution Width 11.9 % (11.5-14.5); Red Blood Cell (RBC) Count 3.81 mill/uL (4.70-6.10); White Blood Cell (WBC) Count 9.8 thou/uL (4.8-10.8)
[2018-11-10 07:40] LABS: Base Excess (BEa) -6.6 mEq/L (-2.0 to +3.0); CO2 Tension 28.1 mmHg (35.0-45.0); Carboxyhemoglobin (COHb) 0.7 gm% (0.0-3.0); Hemoglobin (Hb) 11.4 g/dL (14.0-18.0); Potassium - ABG Lab 4.42 mmol/L (3.70-5.30)
[2018-11-10 07:41] LABS: O2 Tension (PaO2) 46.9 mmHg (> 80.0)
[2018-11-10 07:42] LABS: ALV-art Gradient 203.175 (0-20); Puncture Site RR
[2018-11-10] MEDS: Carvedilol 6.25 MG TAB PER TUBE SCH ×2 (08:32→20:35)
[2018-11-10] MEDS: Aspirin 325 MG TAB PER TUBE SCH (08:32)
[2018-11-10] MEDS: Sodium Chloride 0.9% (PF) 10 ML VIAL FS SCH (08:32)
[2018-11-10] MEDS: Pantoprazole 40 MG VIAL IVP SCH (08:32)
--- NOTE | 2018-11-10 09:31 | RAD ---
PORTABLE CHEST: HISTORY: Respiratory distress. COMPARISON: 11/09/2018 FINDINGS: Endotracheal and NG tubes are in satisfactory position. Pleural and parenchymal lung changes are dony rly similar to the previous exam. There is perhaps slightly increased opacification in the left base , although this may just be related to differences in rotation. IMPRESSION: Relatively stable chest other than perhaps slightly increased parenchymal change in the left base. POS: OFF
[2018-11-10] MEDS: Nitroglycerin 50 MG/250 ML BOT 250 ML IVPB SCH (13:38)
--- NOTE | 2018-11-10 13:46 | OP ---
DATE OF PROCEDURE: 11/08/2018 PROCEDURE PERFORMED: Fiberoptic bronchoscopy. DESCRIPTION OF PROCEDURE: Bronchoscope was introduced via the swivel adapter. It was passed down the main roscoe. The proximal right mainstem bronchus was occluded with thick white mucus. His right mainstem and entire right lung were lavaged and suctioned with 50 mL of saline. Tracheobronchial tree was clear at the completion of the procedure. He tolerated the procedure well. Specimens were sent for Gram-stain and culture. Job ID: [id number]
[2018-11-10] MEDS: Lorazepam 2 MG/ML VIAL SLOW IVP PRN ×2 (15:56→20:35)
--- NOTE | 2018-11-10 16:47 | PRG ---
DATE OF SERVICE: 11/10/2018 SUBJECTIVE: Mr. Painting events from yesterday were reviewed and this was discussed with Dr. Silva. Obviously, with the events of yesterday, he is not a candidate for weaning or extubation today. OBJECTIVE: VITAL SIGNS: Blood pressure 126/78, heart rate 101, and respiratory rate is 29. GENERAL: He will awake and make eye contact, follow commands. LUNGS: Remarkable for coarse equal breath sounds. HEART: Regular rhythm. ABDOMEN: Soft. EXTREMITIES: Without edema. LABORATORY DATA: Bronchial washings from the first not grown any new pathogens. Today's chest x-ray shows hazy alveolar infiltrate on the left and atelectasis on the right. IMPRESSION: 1. Respiratory failure associated with congestive heart failure with severe coronary artery disease, which is not felt to be operable. 2. Severe peripheral vascular disease. 3. Deconditioning. 4. Recurrent pulmonary edema with hypertension. PLAN: Continue with nitroglycerin drip with propofol and with gentle diuresis. He may require a fiberoptic bronchoscopy tomorrow. TIME SPENT: Critical care time 30 minutes. Job ID: [id number]
[2018-11-10] MEDS: Atorvastatin Calcium 40 MG TAB PER TUBE SCH (20:35)
[2018-11-11] MEDS: guaiFENesin ER 600 MG TAB PO SCH ×5 (00:22→23:05)
[2018-11-11] MEDS: Cefepime 1 GM in Sodium Chloride 0.9% 100 ML IVPB SCH ×2 (00:23→11:50)
[2018-11-11] MEDS: Propofol 1,000 MG/100 ML VIAL IV PRN ×2 (02:39→15:20)
[2018-11-11 05:50] LABS: Hemoglobin 9.2 g/dL (14.0-18.0); Mean Corpuscular HGB CONC 33.3 g/dL (32.0-36.0); Mean Corpuscular Hemoglobin 29.5 pg (27.0-31.0); Mean Corpuscular Volume 88.6 fL (78.0-98.0); Mean Platelet Volume 7.2 fL (7.4-10.4); Platelet Count 339 thou/uL (130-400); Red Blood Cell (RBC) Count 3.12 mill/uL (4.70-6.10)
[2018-11-11 05:59] LABS: Band 4 % (5-11); Eosinophils 9 % (0-10); Lymphocytes 20 % (21-51); MDiff Complete? YES; Monocytes 7 % (0-10); Myelocyte 2 % (0-0); Neutrophil 58 % (42-75)
[2018-11-11 06:09] LABS: Anion Gap 12 mmol/L (10-20); BUN (Urea Nitrogen) 59 mg/dL (8.4-25.7); Calc. Creatinine Clearance 21 mL/min (70-130); Calcium 8.3 mg/dL (7.8-10.44); Carbon Dioxide 17 mmol/L (23-31); Chloride 110 mmol/L (98-107); Estimated GFR-MDRD 21; Glucose 346 mg/dL (80-115); Potassium 4.2 mmol/L (3.5-5.1); Sodium 135 mmol/L (136-145)
[2018-11-11 08:19] LABS: Actual Bicarbonate (HCO3a) 17.7 mEq/L (22-28); Base Excess (BEa) -6.1 mEq/L (-2.0 to +3.0); CO2 Tension 28.9 mmHg (35.0-45.0); Calcium, Ionized 1.16 mmol/L (1.12-1.30); Carboxyhemoglobin (COHb) 0.9 gm% (0.0-3.0); Hemoglobin (Hb) 9.2 g/dL (14.0-18.0); O2 Tension (PaO2) 85.2 mmHg (> 80.0); Potassium - ABG Lab 4.03 mmol/L (3.70-5.30)
[2018-11-11 08:21] LABS: Puncture Site RRA
[2018-11-11 08:22] LABS: ALV-art Gradient 163.875 (0-20)
--- NOTE | 2018-11-11 08:30 | RAD ---
EXAM: Single view of the chest HISTORY: Ventilated patient with respiratory failure COMPARISON: 11/10/2018 FINDINGS: Single view of the chest shows an enlarged but stable cardiomediastinal silhouette. The en dotracheal tube and NG tube are unchanged in position. There may be small bilateral pleural effusions. There may be a calcified pleural plaque in the right lung base. There is stable opacificat ion of the right apex. IMPRESSION: Stable exam
[2018-11-11] MEDS: Aspirin 325 MG TAB PER TUBE SCH (09:34)
[2018-11-11] MEDS: Pantoprazole 40 MG VIAL IVP SCH (09:34)
[2018-11-11] MEDS: Sodium Chloride 0.9% (PF) 10 ML VIAL FS SCH (09:34)
[2018-11-11] MEDS: Carvedilol 6.25 MG TAB PER TUBE SCH ×2 (10:16→19:59)
--- NOTE | 2018-11-11 17:43 | PRG ---
DATE OF SERVICE: 11/11/2018 SUBJECTIVE: Mr. Painting remains awake and alert. When sedation is decreased, he moves all extremities. He still has radiographic findings of mucus plug in his right upper lobe. His left lung pulmonary edema is improved. OBJECTIVE: VITAL SIGNS: Blood pressure is 122/72, heart rate 70, respiratory rate is 20, and oximetry is 100%. LUNGS: Remarkable for coarse equal breath sounds. HEART: Regular rhythm. ABDOMEN: Soft and nontender. LABORATORY DATA: White count 8.0, hemoglobin 9.2, and platelets 339. Electrolytes were essentially unchanged. BUN is 59, creatinine is 2.94. Intake and output, positive 151. IMPRESSION: 1. Respiratory failure. 2. Congestive heart failure. 3. Mucus plugging. 4. Clinical ischemia with flash pulmonary edema twice with awakening and elevation of his blood pressure. He did not tolerate extubation. I have recommended a tracheostomy. I think it is his best chance to quickly get off the ventilator. I will also facilitate handling of secretions. He probably would benefit from PEG placement given that it is unlikely that he will be able to swallow after being on the vent for almost two weeks. I initially planned to do bronchoscopy again today, but probably wait until the morning to see if his radiograph improves further. I did get consent for the bronchoscopy. Overall, he appears to be stable. I met with the son and answered all of his questions. CRITICAL CARE TIME: 30 minutes. Job ID: [id number]
[2018-11-11] MEDS: Atorvastatin Calcium 40 MG TAB PER TUBE SCH (19:59)
--- NOTE | 2018-11-11 23:57 | CON ---
DATE OF CONSULTATION: HISTORY OF PRESENT ILLNESS: Mr. Malini Painting has severe myocardial infarction, has PAD, coronary artery disease, and respiratory failure on the ventilator. I have been asked by Dr. Henry to place a tracheostomy and PEG tube. The family wants to proceed with this. The patient was admitted on 11/02/2018 for chest pain and underwent cardiac catheterization and seen by Dr. Henry in the emergency room and followed by Cardiology. He is intubated during his cardiac cath. He has acquired pneumonia. PAST MEDICAL HISTORY: Hypertension, former smoker, occasional alcohol, previous wedge resection of a nodule in his lung, benign in 1987, appendectomy. ALLERGIES: NONE. SOCIAL HISTORY: Tobacco abuse in the past, not currently. PHYSICAL EXAMINATION: GENERAL: The patient is on ventilator. He is sedated. VITAL SIGNS: 97.9, 128/77. LUNGS: Clear to auscultation. Rhonchi at base. CARDIAC: Regular rate and rhythm without murmur or gallop. ABDOMEN: Soft, scar in the right periumbilical lower quadrant. EXTREMITIES: Unremarkable. LABORATORY DATA: White count 8, hemoglobin 9.2. Sodium 135, BUN 59, creatinine 2.94. ASSESSMENT AND PLAN: 1. Respiratory failure. Plan tracheostomy and PEG tube Friday. Risks and benefits have been explained to the family. 2. Acute kidney injury, chronic kidney disease. 3. Coronary artery disease. Job ID: [id number]
[2018-11-12] MEDS: Cefepime 1 GM in Sodium Chloride 0.9% 100 ML IVPB SCH ×2 (00:14→12:55)
[2018-11-12] MEDS: Nitroglycerin 50 MG/250 ML BOT 250 ML IVPB SCH (00:50)
[2018-11-12] MEDS: Propofol 1,000 MG/100 ML VIAL IV PRN ×3 (03:18→20:41)
[2018-11-12] MEDS: guaiFENesin ER 600 MG TAB PO SCH ×3 (05:10→17:26)
[2018-11-12 06:15] LABS: Anion Gap 11 mmol/L (10-20); BUN (Urea Nitrogen) 52 mg/dL (8.4-25.7); Calc. Creatinine Clearance 27 mL/min (70-130); Carbon Dioxide 18 mmol/L (23-31); Chloride 105 mmol/L (98-107); Estimated GFR-MDRD 28; Glucose 202 mg/dL (80-115); Potassium 4.2 mmol/L (3.5-5.1); Sodium 130 mmol/L (136-145)
[2018-11-12 06:17] LABS: Band 7 % (5-11); Eosinophils 5 % (0-10); Hemoglobin 9.3 g/dL (14.0-18.0); Lymphocytes 17 % (21-51); MDiff Complete? YES; Mean Corpuscular HGB CONC 35.2 g/dL (32.0-36.0); Mean Corpuscular Hemoglobin 31.3 pg (27.0-31.0); Mean Corpuscular Volume 88.8 fL (78.0-98.0); Mean Platelet Volume 7.4 fL (7.4-10.4); Neutrophil 71 % (42-75); Platelet Count 344 thou/uL (130-400); Platelet Morphology Comment Appears Adequate; RBC Distribution Width 11.8 % (11.5-14.5); Red Blood Cell (RBC) Count 2.98 mill/uL (4.70-6.10); White Blood Cell (WBC) Count 8.5 thou/uL (4.8-10.8)
[2018-11-12 07:38] LABS: Actual Bicarbonate (HCO3a) 19.7 mEq/L (22-28); Base Excess (BEa) -4.4 mEq/L (-2.0 to +3.0); CO2 Tension 32.9 mmHg (35.0-45.0); Calcium, Ionized 1.21 mmol/L (1.12-1.30); Carboxyhemoglobin (COHb) 0.3 gm% (0.0-3.0); Hemoglobin (Hb) 9.7 g/dL (14.0-18.0); O2 Tension (PaO2) 88.4 mmHg (> 80.0); Potassium - ABG Lab 4.39 mmol/L (3.70-5.30); Puncture Site RRA
[2018-11-12 07:39] LABS: ALV-art Gradient 155.675 (0-20)
--- NOTE | 2018-11-12 08:23 | RAD ---
CHEST 1 VIEW: HISTORY: Ventilated patient. COMPARISON: Radiograph of prior day. FINDINGS: There is worsening aeration in the right upper lobe. There is rightward mediastinal shift. There are dense opacities in the left lower lobe. Small left effusion. IMPRESSION: 1. Worsening aeration in the right lung with rightward mediastinal shift suggesting atelectatic reyes ges. Layering effusion is similar. 2. Left lower lobe opacity concerning for infection. 3. Continued concern for right upper lobe mass. POS: CET
[2018-11-12] MEDS: Carvedilol 6.25 MG TAB PER TUBE SCH ×2 (09:09→20:42)
[2018-11-12] MEDS: Aspirin 325 MG TAB PER TUBE SCH (09:09)
[2018-11-12] MEDS: Pantoprazole 40 MG VIAL IVP SCH (09:13)
[2018-11-12] MEDS: Sodium Chloride 0.9% (PF) 10 ML VIAL FS SCH (09:14)
[2018-11-12] MEDS: Atorvastatin Calcium 40 MG TAB PER TUBE SCH (20:42)
--- NOTE | 2018-11-12 21:12 | PRG ---
DATE OF SERVICE: 11/12/2018 SUBJECTIVE: Mr. Painting is in no distress. Tentatively on schedule for trach and PEG tomorrow. He has more atelectasis of his left upper lobe. I suspect this will improve once tracheostomy is in place. OBJECTIVE: LUNGS: Clear. HEART: Regular rhythm. ABDOMEN: Soft. His antibiotics have been changed. IMPRESSION: 1. Ongoing problems with mucus plugging. 2. Respiratory failure. 3. Coronary artery disease. 4. Congestive heart failure. 5. Ongoing coronary ischemia when we let him wake up. PLAN: Tracheostomy and PEG tomorrow. Hopefully, he will stabilize. We can begin the weaning process. We will continue with antimicrobial therapy and respiratory care. CRITICAL CARE TIME: 30 minutes. Job ID: [id number] MTDD
[2018-11-13] MEDS: guaiFENesin ER 600 MG TAB PO SCH ×4 (00:34→19:20)
[2018-11-13] MEDS: Cefepime 1 GM in Sodium Chloride 0.9% 100 ML IVPB SCH ×2 (00:34→12:52)
[2018-11-13] MEDS: Nitroglycerin 50 MG/250 ML BOT 250 ML IVPB SCH (02:06)
[2018-11-13] MEDS: Propofol 1,000 MG/100 ML VIAL IV PRN ×2 (02:06→15:30)
[2018-11-13 05:21] LABS: Band 2 % (5-11); Eosinophils 4 % (0-10); Hemoglobin 10.7 g/dL (14.0-18.0); Hypochromia SLIGHT = 6-15 cells (100X) (0-5/hpf); Lymphocytes 7 % (21-51); MDiff Complete? YES; Mean Corpuscular HGB CONC 34.5 g/dL (32.0-36.0); Mean Corpuscular Hemoglobin 30.7 pg (27.0-31.0); Mean Corpuscular Volume 89.1 fL (78.0-98.0); Mean Platelet Volume 7.4 fL (7.4-10.4); Monocytes 6 % (0-10); Neutrophil 81 % (42-75); Platelet Count 404 thou/uL (130-400); Platelet Morphology Comment Appears Adequate; RBC Distribution Width 12.1 % (11.5-14.5); Red Blood Cell (RBC) Count 3.48 mill/uL (4.70-6.10); White Blood Cell (WBC) Count 10.5 thou/uL (4.8-10.8)
[2018-11-13 05:26] LABS: Anion Gap 12 mmol/L (10-20); BUN (Urea Nitrogen) 53 mg/dL (8.4-25.7); Calc. Creatinine Clearance 26 mL/min (70-130); Calcium 8.8 mg/dL (7.8-10.44); Carbon Dioxide 19 mmol/L (23-31); Chloride 108 mmol/L (98-107); Estimated GFR-MDRD 27; Glucose 216 mg/dL (80-115); Potassium 4.4 mmol/L (3.5-5.1); Sodium 135 mmol/L (136-145)
[2018-11-13 08:04] LABS: Actual Bicarbonate (HCO3a) 18.1 mEq/L (22-28); Base Excess (BEa) -5.6 mEq/L (-2.0 to +3.0); CO2 Tension 29.5 mmHg (35.0-45.0); Calcium, Ionized 1.19 mmol/L (1.12-1.30); Carboxyhemoglobin (COHb) 0.3 gm% (0.0-3.0); O2 Tension (PaO2) 74.9 mmHg (> 80.0); Potassium - ABG Lab 4.35 mmol/L (3.70-5.30); pH, Arterial 7.41 (7.35-7.45)
[2018-11-13 08:10] LABS: Puncture Site RRA
[2018-11-13 08:11] LABS: ALV-art Gradient 173.425 (0-20)
[2018-11-13] MEDS ORDERED: Lidocaine 2% PF 5 ML VIAL ONE (09:23)
[2018-11-13] MEDS ORDERED: Bupivacaine HCl 0.5%/Epinephrine 1:200,000/PF 30 ml Vial ONE (09:23)
--- NOTE | 2018-11-13 09:31 | RAD ---
PORTABLE CHEST 1 VIEW: DTAE: 11/13/2018. TIME: 4:58 a.m. HISTORY: Respiratory failure. FINDINGS: No significant interval change is seen since the previous day's exam. POS: BRYCEH
[2018-11-13] MEDS ORDERED: Fentanyl 100 MCG/2 ML VIAL ONE (09:39)
--- NOTE | 2018-11-13 12:34 | PRG ---
DATE OF SERVICE: 11/13/2018 SUBJECTIVE: Mr. Painting went down for his tracheostomy and PEG today. He is back with no complication so far. OBJECTIVE: VITAL SIGNS: Heart rate 80, blood pressure 133/80, respiratory rate 16, and oximetry is 100%. GENERAL: He is still paralyzed from the procedure. LUNGS: Clear. HEART: Regular rhythm. ABDOMEN: Soft. EXTREMITIES: Without clubbing, cyanosis, or edema. Chest x-ray from today is reviewed. He now has right lung atelectasis. Now, he has a tracheostomy, we will try with more aggressive suctioning to clear this out, but he may need bronchoscopy in the morning. Job ID: [id number]
[2018-11-13] MEDS ORDERED: Dextrose 5% in Water 1,000 ML IV PRN (12:47)
[2018-11-13] MEDS ORDERED: Dextrose 50% Abboject 50 ML SYRINGE IVP PRN (12:47)
[2018-11-13] MEDS: Aspirin 325 MG TAB PER TUBE SCH (12:51)
[2018-11-13] MEDS: Carvedilol 6.25 MG TAB PER TUBE SCH ×3 (12:52→20:03)
[2018-11-13] MEDS: Pantoprazole 40 MG VIAL IVP SCH (12:52)
[2018-11-13] MEDS: Sodium Chloride 0.9% (PF) 10 ML VIAL FS SCH (12:53)
[2018-11-13] MEDS: Insulin Regular 300 UNITS/3 ML VIAL SC PRN (13:09)
[2018-11-13] MEDS ORDERED: Rocuronium Bromide 10 MG/ML (10ML VIAL) ONE (13:33)
--- NOTE | 2018-11-13 17:09 | OP ---
DATE OF PROCEDURE: 11/13/2018 PREOPERATIVE DIAGNOSES: Malnutrition, respiratory failure, and coronary artery disease. POSTOPERATIVE DIAGNOSES: Malnutrition, respiratory failure, and coronary artery disease. PROCEDURES PERFORMED: #8 Shiley tracheostomy tube and percutaneous endoscopic gastrostomy tube. ANESTHESIA: General, local of 0.5% Marcaine with epinephrine. DESCRIPTION OF PROCEDURE: The patient was taken to the operating room, where under general anesthesia, neck and chest were prepared with ChloraPrep and draped in routine fashion. Incision was made in the anterior neck above the manubrium, carried down through skin and platysma, identifying the strap muscles, creating a flap superiorly, dissecting down to the thyroid gland, dividing it in the middle with the cautery, identifying the trachea, reflecting tissues bilaterally, and placing stay sutures of 3-0 Prolene with air knots tied. Below the cricoid, anterior tracheal window was excised over 3 cartilaginous rings, and endotracheal tube was identified. Good hemostasis was noted and obtained with the cautery. The endotracheal tube was removed. #8 Shiley low-pressure cuffed tracheostomy appliance was placed under direct visualization to the trachea and balloon inflated and connected to the airway for ventilation. Skin was approximated with 3-0 Prolene on either side. Tracheostomy appliance was secured to skin with 3-0 Prolene. Sterile dressing was applied. Endoscope was placed per os under direct visualization and using air insufflation passed throughout the esophagus into the stomach noting a good indentation of the left subcostal. Area had been prepared with ChloraPrep. Local anesthetic was infiltrated in the skin and subcutaneous tissue. Stab incision was made. Trocar catheter was introduced percutaneously into the gastric lumen, visualized endoscopically, placing the wire, grasping it with a snare, bringing the wire out of the mouth, connecting it to the gastrostomy tube, and then under traction, pulling the gastrostomy feeding tube into the stomach and out the abdominal wall and securing it to the abdominal wall with a fixation device. Good hemostasis was noted. Feeding device was secured after tube was tailored to length. The patient tolerated the procedure well. Job ID: [id number]
[2018-11-13] MEDS: Atorvastatin Calcium 40 MG TAB PER TUBE SCH (20:03)
[2018-11-14] MEDS: Cefepime 1 GM in Sodium Chloride 0.9% 100 ML IVPB SCH ×2 (00:26→14:24)
[2018-11-14] MEDS: guaiFENesin ER 600 MG TAB PO SCH ×4 (00:26→16:57)
[2018-11-14] MEDS: Propofol 1,000 MG/100 ML VIAL IV PRN ×4 (00:34→21:20)
[2018-11-14 06:12] LABS: Anion Gap 14 mmol/L (10-20); BUN (Urea Nitrogen) 53 mg/dL (8.4-25.7); Calc. Creatinine Clearance 25 mL/min (70-130); Calcium 9.3 mg/dL (7.8-10.44); Carbon Dioxide 18 mmol/L (23-31); Chloride 109 mmol/L (98-107); Estimated GFR-MDRD 27; Glucose 223 mg/dL (80-115); Potassium 4.9 mmol/L (3.5-5.1); Sodium 136 mmol/L (136-145)
[2018-11-14 06:14] LABS: Band 2 % (5-11); Eosinophils 2 % (0-10); Hemoglobin 11.5 g/dL (14.0-18.0); Lymphocytes 10 % (21-51); MDiff Complete? YES; Mean Corpuscular HGB CONC 32.7 g/dL (32.0-36.0); Mean Corpuscular Hemoglobin 28.8 pg (27.0-31.0); Mean Platelet Volume 7.4 fL (7.4-10.4); Metamyelocyte 2 % (0-0); Monocytes 3 % (0-10); Neutrophil 80 % (42-75); Nucleated RBC 1 % (0); Platelet Count 433 thou/uL (130-400); Platelet Morphology Comment Appears Increased; RBC Distribution Width 12.3 % (11.5-14.5); RBC Morphology Normal; Reactive Lymphocytes 1 % (0-10); Red Blood Cell (RBC) Count 3.98 mill/uL (4.70-6.10)
--- NOTE | 2018-11-14 07:36 | RAD ---
EXAM: Portable chest PROVIDED CLINICAL HISTORY: Respiratory insufficiency COMPARISON: 11/13/2018 FINDINGS: Interval extubation and placement of tracheostomy appliance. Additional interval change with respect to the prior examination is not apparent. IMPRESSION: As above.
--- NOTE | 2018-11-14 08:44 | PRG ---
DATE OF SERVICE: 11/14/2018 SUBJECTIVE: Mr. Painting is supine and in bed, seems to be breathing adequately. OBJECTIVE: VITAL SIGNS: His blood pressure is 148/94, pulse is 110 and sinus. LUNGS: Clear on the left, decreased in the right. ABDOMEN: Soft, nontender. EXTREMITIES: No clubbing, no cyanosis. There is no edema. IMAGING STUDIES: A chest x-ray does show a very large right pleural effusion. ASSESSMENT: 1. Status post myocardial infarction. 2. Previous tracheostomy. 3. Inoperable coronary artery disease according to the notes. PLAN: 1. Continue supportive care. Prognosis poor. 2. Continue to follow renal function. Job ID: [id number]
--- NOTE | 2018-11-14 09:06 | OP ---
DATE OF PROCEDURE: 11/14/2018 PROCEDURE PERFORMED: Bronchoscopy. PREOPERATIVE DIAGNOSIS: Right mucus plugging. POSTOPERATIVE DIAGNOSIS: Right lung mucus plugging. ANESTHESIA: None. The patient was on mechanical ventilation with continuous drip of propofol. DESCRIPTION OF PROCEDURE: An adapter was placed into the patient's tracheostomy tube. An Ambu bronchoscope was placed through the tracheostomy site. Bloody mucus plugging was present in the right mainstem bronchus. This was suctioned and removed. The right upper lobe was visualized and it was just a stop remnant from previous surgery. There were bloody secretions present in the right middle lobe and right lower lobe, which were lavaged. The left lung was clear. Job ID: [id number]
--- NOTE | 2018-11-14 09:07 | PRG ---
DATE OF SERVICE: 11/14/2018 SUBJECTIVE: He remains on mechanical ventilation through tracheostomy. He is sedated with propofol and Precedex. OBJECTIVE: VITAL SIGNS: Temperature 99.1, pulse 102, blood pressure 146/94, and O2 saturation 100%. Intake for 24 hours 2017, output 1190. HEENT: Unremarkable. NECK: No JVD. Trach in good position. LUNGS: Absent breath sounds on the right compared to the left. CARDIAC: S1, S2. Regular. ABDOMEN: Soft. EXTREMITIES: Trace edema. LABORATORY DATA: White blood cell count 14, hematocrit 35, and platelet count 433. Sodium 136, potassium 4.9, chloride 109, CO2 of 18, BUN 33, creatinine 2.4, glucose 223. IMAGING STUDIES: Chest x-ray shows right lung atelectasis. ASSESSMENT: 1. Right lung atelectasis. 2. Respiratory failure, requiring mechanical ventilation. 3. Renal insufficiency. 4. Agitation. PLAN: 1. Therapeutic bronchoscopy. 2. Continue mechanical ventilation. 3. Add Reglan for high gastric residuals. The above encompassed 35 minutes of critical care time. Job ID: [id number]
[2018-11-14] MEDS: Amlodipine 10 MG TAB PER TUBE SCH (10:50)
[2018-11-14] MEDS: Aspirin 325 MG TAB PER TUBE SCH (10:50)
[2018-11-14] MEDS: Carvedilol 6.25 MG TAB PER TUBE SCH ×3 (10:51→20:32)
[2018-11-14] MEDS: Metoclopramide HCl 10 MG/2 ML VIAL IVP SCH ×3 (10:52→23:27)
[2018-11-14] MEDS: Pantoprazole 40 MG VIAL IVP SCH (10:52)
[2018-11-14] MEDS: Sodium Chloride 0.9% (PF) 10 ML VIAL FS SCH (10:52)
[2018-11-14] MEDS: Insulin Regular 300 UNITS/3 ML VIAL SC PRN ×3 (11:29→23:27)
[2018-11-14] MEDS: Atorvastatin Calcium 40 MG TAB PER TUBE SCH (20:32)
[2018-11-15] MEDS: Cefepime 1 GM in Sodium Chloride 0.9% 100 ML IVPB SCH ×2 (00:48→12:51)
[2018-11-15] MEDS: guaiFENesin ER 600 MG TAB PO SCH ×4 (00:48→16:21)
[2018-11-15] MEDS: Metoclopramide HCl 10 MG/2 ML VIAL IVP SCH ×4 (05:10→21:05)
[2018-11-15] MEDS: Propofol 1,000 MG/100 ML VIAL IV PRN ×3 (05:11→18:51)
[2018-11-15 07:29] LABS: Hemoglobin 10.1 g/dL (14.0-18.0); Mean Corpuscular Hemoglobin 30.4 pg (27.0-31.0); Mean Corpuscular Volume 89.5 fL (78.0-98.0); Mean Platelet Volume 7.6 fL (7.4-10.4); Platelet Count 397 thou/uL (130-400); RBC Distribution Width 12.3 % (11.5-14.5); Red Blood Cell (RBC) Count 3.33 mill/uL (4.70-6.10); White Blood Cell (WBC) Count 13.9 thou/uL (4.8-10.8)
--- NOTE | 2018-11-15 07:40 | RAD ---
EXAM: XR Chest 1 View Portable PROVIDED CLINICAL HISTORY: Respiratory insufficiency COMPARISON: 11/14/2018 FINDINGS: Interval improvement in aeration involving the right hemithorax. Extensive abnormal opacity persists involving the right perihilar and upper lung zones. Blunting of right lateral costophrenic angle. Diffuse airspace disease left lung. Tracheostomy appliance redemonstrated. IMPRESSION: Interval improvement in aeration involving the right lung. Persistent abnormal bilateral parenchymal opacity.
[2018-11-15 07:48] LABS: Anion Gap 17 mmol/L (10-20); BUN (Urea Nitrogen) 69 mg/dL (8.4-25.7); Calc. Creatinine Clearance 23 mL/min (70-130); Calcium 8.9 mg/dL (7.8-10.44); Carbon Dioxide 15 mmol/L (23-31); Chloride 110 mmol/L (98-107); Estimated GFR-MDRD 22; Glucose 183 mg/dL (80-115); Potassium 4.5 mmol/L (3.5-5.1); Sodium 137 mmol/L (136-145)
[2018-11-15 08:04] LABS: Band 1 % (5-11); Eosinophils 6 % (0-10); Lymphocytes 10 % (21-51); MDiff Complete? YES; Monocytes 11 % (0-10); Neutrophil 72 % (42-75); Platelet Morphology Comment Appears Adequate
--- NOTE | 2018-11-15 09:29 | PRG ---
DATE OF SERVICE: 11/15/2018 SUBJECTIVE: Mr. Painting is sleeping comfortably. There are no complaints. No chest pain or pressure. OBJECTIVE: VITAL SIGNS: Blood pressure 126/77, pulse 90. LUNGS: Clear. CARDIAC: Normal S1. Normal S2. No murmur, rub, or gallop. ABDOMEN: Soft and nontender. ASSESSMENT: 1. Status post myocardial infarction. 2. Inoperable coronary artery disease. 3. Previous tracheotomy. PLAN: Continue supportive care. His primary resizer operator will return tomorrow. Job ID: [id number]
[2018-11-15] MEDS: Amlodipine 10 MG TAB PER TUBE SCH (09:41)
[2018-11-15] MEDS: Carvedilol 6.25 MG TAB PER TUBE SCH ×3 (09:41→21:04)
[2018-11-15] MEDS: Aspirin 325 MG TAB PER TUBE SCH (09:41)
[2018-11-15] MEDS: Pantoprazole 40 MG VIAL IVP SCH (09:41)
[2018-11-15] MEDS: Sodium Chloride 0.9% (PF) 10 ML VIAL FS SCH (09:46)
[2018-11-15] MEDS: Insulin Regular 300 UNITS/3 ML VIAL SC PRN ×3 (10:22→22:12)
--- NOTE | 2018-11-15 10:45 | PRG ---
DATE OF SERVICE: 11/15/2018 TIME SPENT: 35 minutes of critical care time. SUBJECTIVE: The patient remains intubated on mechanical ventilation, there has been no acute changes. OBJECTIVE: VITAL SIGNS: Temperature is 98.5, pulse 90, blood pressure 116/69. GENERAL: He is sedated on propofol and Precedex, apparently he becomes agitated off that. HEENT: Unremarkable. NECK: Tracheostomy in good position. LUNGS: Clear left side, diminished breath sounds right. CARDIAC: S1 and S2, regular. ABDOMEN: Soft. EXTREMITIES: No edema. His chest x-ray shows improved aeration in the right lung. LABORATORY DATA: Sodium 137, potassium 4.5, chloride 110, CO2 of 15, BUN 69, creatinine 2.9, glucose 183. White blood cell count 13.9, hematocrit 29.8, and platelet count 397. ASSESSMENT: 1. Right lung atelectasis - improved after bronchoscopy yesterday. 2. Respiratory failure, requiring mechanical ventilation. 3. Renal insufficiency. 4. Agitation. PLAN: Continue supportive care. I do not think he is weanable from mechanical ventilation at this time of NPH insulin because the patient's persistent hyperglycemia, he continues Reglan, but unfortunately his gastric residuals remain high. I spoke with his son at bedside. I would be very pessimistic that the patient will recover. Job ID: [id number]
[2018-11-15] MEDS: Atorvastatin Calcium 40 MG TAB PER TUBE SCH (21:04)
[2018-11-15] MEDS: NPH, Human Insulin Isophane 300 UNIT/3 ML VIAL SC SCH (21:31)
[2018-11-16] MEDS: guaiFENesin ER 600 MG TAB PO SCH ×5 (00:11→23:43)
[2018-11-16] MEDS: Cefepime 1 GM in Sodium Chloride 0.9% 100 ML IVPB SCH (00:11)
[2018-11-16] MEDS: Propofol 1,000 MG/100 ML VIAL IV PRN ×4 (02:11→23:43)
[2018-11-16] MEDS: Metoclopramide HCl 10 MG/2 ML VIAL IVP SCH ×4 (03:09→23:42)
[2018-11-16] MEDS: Insulin Regular 300 UNITS/3 ML VIAL SC PRN ×2 (04:57→09:49)
[2018-11-16 05:04] LABS: Anion Gap 15 mmol/L (10-20); BUN (Urea Nitrogen) 81 mg/dL (8.4-25.7); Calc. Creatinine Clearance 20 mL/min (70-130); Calcium 8.9 mg/dL (7.8-10.44); Carbon Dioxide 17 mmol/L (23-31); Chloride 108 mmol/L (98-107); Estimated GFR-MDRD 18; Glucose 179 mg/dL (80-115); Potassium 4.5 mmol/L (3.5-5.1); Sodium 135 mmol/L (136-145)
[2018-11-16 05:18] LABS: Band 10 % (5-11); Eosinophils 1 % (0-10); Hemoglobin 9.5 g/dL (14.0-18.0); Lymphocytes 14 % (21-51); MDiff Complete? YES; Mean Corpuscular HGB CONC 33.6 g/dL (32.0-36.0); Mean Corpuscular Hemoglobin 29.6 pg (27.0-31.0); Mean Platelet Volume 7.7 fL (7.4-10.4); Metamyelocyte 1 % (0-0); Monocytes 9 % (0-10); Myelocyte 2 % (0-0); Neutrophil 63 % (42-75); Platelet Count 437 thou/uL (130-400); Platelet Morphology Comment Appears Increased; RBC Distribution Width 12.2 % (11.5-14.5); Red Blood Cell (RBC) Count 3.21 mill/uL (4.70-6.10); White Blood Cell (WBC) Count 15.5 thou/uL (4.8-10.8)
[2018-11-16 07:31] LABS: Actual Bicarbonate (HCO3a) 15.8 mEq/L (22-28); Base Excess (BEa) -8.2 mEq/L (-2.0 to +3.0); CO2 Tension 27.6 mmHg (35.0-45.0); Calcium, Ionized 1.18 mmol/L (1.12-1.30); Carboxyhemoglobin (COHb) 0.4 gm% (0.0-3.0); Hemoglobin (Hb) 10.3 g/dL (14.0-18.0); Potassium - ABG Lab 4.52 mmol/L (3.70-5.30); pH, Arterial 7.38 (7.35-7.45)
[2018-11-16 07:32] LABS: O2 Tension (PaO2) 49.7 mmHg (> 80.0); Puncture Site RBA
--- NOTE | 2018-11-16 08:00 | RAD ---
Frontal radiograph chest: 11/16/2018 COMPARISON: 11/15/2018 HISTORY: Ventilated patient FINDINGS: Mass density noted in the right hilar region. There is dense opacity in the right lung apex suggesting right upper lobe consolidation/collapse. Bilateral pleural effusions and/or pleural thickening noted. There is increased density throughout the left hemithorax suggesting nonspecific ai r space disease and/or veiling opacity associated with pleural fluid. There is atherosclerotic calcification of the aortic arch. Stable tracheostomy tube. IMPRESSION: Nonspecific bilateral pleural and parenchymal opacity. Rounded density in the right hilum is suspicious for an underlying mass lesion. Follow-up chest CT advised to evaluate for possible underlying malignancy.
[2018-11-16] MEDS ORDERED: Bisacodyl 10 MG SUPP PR PRN (08:44)
[2018-11-16] MEDS: NPH, Human Insulin Isophane 300 UNIT/3 ML VIAL SC SCH ×2 (09:41→20:23)
[2018-11-16] MEDS: Aspirin 325 MG TAB PER TUBE SCH (09:42)
[2018-11-16] MEDS: Pantoprazole 40 MG VIAL IVP SCH (09:42)
[2018-11-16] MEDS: Carvedilol 6.25 MG TAB PER TUBE SCH (09:43)
[2018-11-16] MEDS: Sodium Chloride 0.9% (PF) 10 ML VIAL FS SCH (09:44)
[2018-11-16] MEDS: Amlodipine 10 MG TAB PER TUBE SCH (09:44)
[2018-11-16] MEDS ORDERED: Enoxaparin Sodium 30 MG/0.3 ML SYRINGE SC SCH (14:15)
--- NOTE | 2018-11-16 15:26 | PRG ---
DATE OF SERVICE: 11/16/2018 SUBJECTIVE: Malini Painting made little progress over the weekend. He still has right upper lobe atelectasis. He had bronchoscopy this weekend with mucus plugging. OBJECTIVE: VITAL SIGNS: Heart rates in the 80s, blood pressure stable in 90- 100 range____ LUNGS: Remarkable for rhonchi bilaterally. HEART: Regular rhythm. ABDOMEN: Soft. LABORATORY DATA: White count 15.5, hemoglobin 9.5, platelets 437,000. Sodium 135, potassium 4.5, chloride 108, bicarb 17, creatinine 3.37. A pH is 7.38, pC02 27.6, p02 49.7, today. IMPRESSION: 1. Respiratory failure. 2. Myocardial infarction, post cardiac catheterization . 3. Metabolic acidosis. Renal failure. Job ID: [id number] MTDD
[2018-11-16] MEDS: Carvedilol 25 MG TAB PER TUBE SCH (17:35)
[2018-11-16] MEDS: Atorvastatin Calcium 40 MG TAB PER TUBE SCH (20:23)
[2018-11-17] MEDS: Cefepime 1 GM in Sodium Chloride 0.9% 100 ML IVPB SCH (02:05)
[2018-11-17] MEDS: Metoclopramide HCl 10 MG/2 ML VIAL IVP SCH ×4 (05:24→21:04)
[2018-11-17] MEDS: guaiFENesin ER 600 MG TAB PO SCH ×4 (05:24→23:43)
[2018-11-17] MEDS: Insulin Regular 300 UNITS/3 ML VIAL SC PRN ×4 (05:27→22:10)
[2018-11-17 05:50] LABS: #Eosinphils 0.7 thou/uL (0.0-0.7); #Lymphocytes 1.1 thou/uL (1.20-3.40); #Monocytes 1.5 thou/uL (0.11-0.59); %Basophils 0.3 % (0.0-1.0); %Eosinophils 5.3 % (0.0-10.0); %Lymphocytes 8.4 % (21.0-51.0); %Monocytes 11.3 % (0.0-10.0); %Neutrophils 74.7 % (42.0-75.0); Hemoglobin 8.9 g/dL (14.0-18.0); Mean Corpuscular HGB CONC 34.5 g/dL (32.0-36.0); Mean Corpuscular Hemoglobin 30.2 pg (27.0-31.0); Mean Corpuscular Volume 87.6 fL (78.0-98.0); Mean Platelet Volume 7.6 fL (7.4-10.4); Platelet Count 437 thou/uL (130-400); RBC Distribution Width 12.3 % (11.5-14.5); Red Blood Cell (RBC) Count 2.95 mill/uL (4.70-6.10); White Blood Cell (WBC) Count 13.4 thou/uL (4.8-10.8)
[2018-11-17 06:09] LABS: Anion Gap 17 mmol/L (10-20); BUN (Urea Nitrogen) 95 mg/dL (8.4-25.7); Calc. Creatinine Clearance 17 mL/min (70-130); Calcium 8.7 mg/dL (7.8-10.44); Carbon Dioxide 15 mmol/L (23-31); Chloride 107 mmol/L (98-107); Estimated GFR-MDRD 16; Glucose 224 mg/dL (80-115); Potassium 4.5 mmol/L (3.5-5.1); Sodium 134 mmol/L (136-145)
[2018-11-17 07:42] LABS: Actual Bicarbonate (HCO3a) 13.4 mEq/L (22-28); Base Excess (BEa) -10.7 mEq/L (-2.0 to +3.0); Calcium, Ionized 1.16 mmol/L (1.12-1.30); Carboxyhemoglobin (COHb) 0.3 gm% (0.0-3.0); Hemoglobin (Hb) 9.4 g/dL (14.0-18.0); Potassium - ABG Lab 4.63 mmol/L (3.70-5.30); pH, Arterial 7.35 (7.35-7.45)
[2018-11-17 07:47] LABS: CO2 Tension 24.8 mmHg (35.0-45.0)
[2018-11-17 07:48] LABS: O2 Tension (PaO2) 42.3 mmHg (> 80.0)
--- NOTE | 2018-11-17 08:01 | RAD ---
XR Chest 1 View Portable History: Ventilated patient Comparison: Radiograph prior day Findings: Tracheostomy tube is similar. Very large left and moderate to large right pleural effusion. Background lung hyperinflation. Dense bibasilar opacities. Dense calcifications of the aorta. Large right hilar mass. Post obstructive pneumonitis right upper lobe. Impression: Similar examination of the chest. CT chest recommended for right hilar mass evaluation.
[2018-11-17] MEDS: Amlodipine 10 MG TAB PER TUBE SCH (08:38)
[2018-11-17] MEDS: Carvedilol 25 MG TAB PER TUBE SCH (08:38)
[2018-11-17] MEDS: Aspirin 325 MG TAB PER TUBE SCH (08:38)
[2018-11-17] MEDS: Pantoprazole 40 MG VIAL IVP SCH (08:39)
[2018-11-17] MEDS: NPH, Human Insulin Isophane 300 UNIT/3 ML VIAL SC SCH ×2 (08:39→20:17)
[2018-11-17] MEDS: Sodium Chloride 0.9% (PF) 10 ML VIAL FS SCH (08:39)
[2018-11-17] MEDS ORDERED: Furosemide 40 MG/4 ML VIAL IVP SCH (08:49)
[2018-11-17] MEDS ORDERED: Enoxaparin Sodium 30 MG/0.3 ML SYRINGE SC SCH (09:00)
[2018-11-17] MEDS: Propofol 1,000 MG/100 ML VIAL IV PRN (09:23)
[2018-11-17] MEDS: Nitroglycerin 50 MG/250 ML BOT 250 ML IVPB SCH (09:25)
[2018-11-17] MEDS ORDERED: Bacteriostatic Normal Saline 30 ML VIAL ONE (13:58)
[2018-11-17] MEDS ORDERED: Vecuronium 10 MG VIAL IVP SCH (14:00)
[2018-11-17 14:58] LABS: Actual Bicarbonate (HCO3a) 12.3 mEq/L (22-28); Base Excess (BEa) -12.9 mEq/L (-2.0 to +3.0); CO2 Tension 26.3 mmHg (35.0-45.0); Calcium, Ionized 1.15 mmol/L (1.12-1.30); Carboxyhemoglobin (COHb) 1.6 gm% (0.0-3.0); Hemoglobin (Hb) 9.4 g/dL (14.0-18.0); O2 Tension (PaO2) 63.4 mmHg (> 80.0); Potassium - ABG Lab 5.42 mmol/L (3.70-5.30); pH, Arterial 7.29 (7.35-7.45)
[2018-11-17] MEDS ORDERED: Sodium Bicarb 50 MEQ/50 ML VIAL IVP SCH (15:15)
[2018-11-17] MEDS: Vecuronium 10 MG VIAL IV PRN ×2 (15:23→20:16)
[2018-11-17] MEDS: Heparin 5,000 UNITS/ML VIAL SC SCH ×2 (15:25→20:16)
[2018-11-17 15:30] LABS: ALV-art Gradient 331.525 (0-20)
[2018-11-17] MEDS: Carvedilol 6.25 MG TAB PO SCH (17:51)
[2018-11-17] MEDS: Atorvastatin Calcium 40 MG TAB PER TUBE SCH (20:16)
[2018-11-18] MEDS: Cefepime 1 GM in Sodium Chloride 0.9% 100 ML IVPB SCH (00:58)
[2018-11-18] MEDS: Metoclopramide HCl 10 MG/2 ML VIAL IVP SCH ×4 (06:01→21:27)
[2018-11-18] MEDS: guaiFENesin ER 600 MG TAB PO SCH ×3 (06:01→17:58)
[2018-11-18 06:36] LABS: Band 21 % (5-11); Eosinophils 3 % (0-10); Hemoglobin 7.9 g/dL (14.0-18.0); Lymphocytes 6 % (21-51); MDiff Complete? YES; Mean Corpuscular HGB CONC 33.8 g/dL (32.0-36.0); Mean Corpuscular Hemoglobin 29.6 pg (27.0-31.0); Mean Corpuscular Volume 87.6 fL (78.0-98.0); Mean Platelet Volume 8.1 fL (7.4-10.4); Metamyelocyte 1 % (0-0); Monocytes 6 % (0-10); Myelocyte 1 % (0-0); Neutrophil 62 % (42-75); Platelet Count 403 thou/uL (130-400); Platelet Morphology Comment Appears Increased; RBC Distribution Width 12.2 % (11.5-14.5); Red Blood Cell (RBC) Count 2.66 mill/uL (4.70-6.10); White Blood Cell (WBC) Count 11.6 thou/uL (4.8-10.8)
[2018-11-18 06:51] LABS: Anion Gap 18 mmol/L (10-20); BUN (Urea Nitrogen) 125 mg/dL (8.4-25.7); Calc. Creatinine Clearance 13 mL/min (70-130); Calcium 8.5 mg/dL (7.8-10.44); Carbon Dioxide 17 mmol/L (23-31); Chloride 105 mmol/L (98-107); Estimated GFR-MDRD 11; Glucose 235 mg/dL (80-115); Potassium 4.5 mmol/L (3.5-5.1); Sodium 135 mmol/L (136-145)
--- NOTE | 2018-11-18 07:20 | PRG ---
DATE OF SERVICE: 11/17/2018 To whom it may concern, Malini Painting currently is severely ill and in the hospital. At the present time, he needs constant care in the intensive care setting. Sincerely, Ayaz Huston MD Job ID: [id number] MTDD
[2018-11-18 07:21] LABS: Actual Bicarbonate (HCO3a) 14.5 mEq/L (22-28); Calcium, Ionized 1.09 mmol/L (1.12-1.30); Carboxyhemoglobin (COHb) 1.1 gm% (0.0-3.0); Hemoglobin (Hb) 8.3 g/dL (14.0-18.0); O2 Tension (PaO2) 88.6 mmHg (> 80.0); Potassium - ABG Lab 4.41 mmol/L (3.70-5.30); pH, Arterial 7.41 (7.35-7.45)
[2018-11-18 07:22] LABS: CO2 Tension 23.6 mmHg (35.0-45.0)
[2018-11-18] MEDS: Propofol 1,000 MG/100 ML VIAL IV PRN (08:40)
--- NOTE | 2018-11-18 09:00 | RAD ---
PORTABLE CHEST: Date: 11/18/18 INDICATION: CCU follow-up. On ventilator. COMPARISON: 11/17/18, 11/16/18, and 11/15/18. FINDINGS: There has been clearing and increased aeration in the left lung when compared to yesterday. However, there is now complete opacification of the right hemithorax. The aerated portions of the rig ht lung noted yesterday are opacified today and probably indicating interval atelectasis on the right . IMPRESSION: Improved aeration in the left lung. However, there is now complete opacification of the right hemitho rax indicating increasing right effusion and/or right lung atelectasis. POS: OFF
[2018-11-18] MEDS: Amlodipine 10 MG TAB PER TUBE SCH (10:16)
[2018-11-18] MEDS: Carvedilol 6.25 MG TAB PO SCH ×2 (10:16→17:58)
[2018-11-18] MEDS: Sodium Chloride 0.9% (PF) 10 ML VIAL FS SCH (10:17)
[2018-11-18] MEDS: Heparin 5,000 UNITS/ML VIAL SC SCH ×3 (10:17→21:06)
[2018-11-18] MEDS: Aspirin 325 MG TAB PER TUBE SCH (10:17)
[2018-11-18] MEDS: Pantoprazole 40 MG VIAL IVP SCH (10:17)
[2018-11-18] MEDS: NPH, Human Insulin Isophane 300 UNIT/3 ML VIAL SC SCH ×2 (10:19→21:06)
--- NOTE | 2018-11-18 11:15 | PRG ---
DATE OF SERVICE: 11/17/2018 SUBJECTIVE: Mr. Painting continues to decline. He was given diuretics with no response. Intake and output positive With lasix , his blood pressure dropped into the 90s. We have had no urine out today. OBJECTIVE: LUNGS: Remarkable for coarse breath sounds. HEART: Regular rhythm. ABDOMEN: Soft. LABORATORY DATA: White count 13.4, hemoglobin 8.9, platelets 437,000, sodium 134, potassium 4.5, chloride 107, bicarb 15, BUN95, creatinine 3.7, pH 7.29, pC02 26 , pO2 63. I would anticipate his potassium drifting upward. Met with son,answered all of his questions. I have explained Mr Painting will not survive this. Chest radiograph was reviewed and shows a worsening alveolar infiltrates on the left, which is related to congestive heart failure. Repeat echocardiogram this afternoon, Suspect declining syatolic function. Job ID: [id number] MTDD
[2018-11-18] MEDS: Insulin Regular 300 UNITS/3 ML VIAL SC PRN ×3 (11:32→21:09)
[2018-11-18 12:28] VITALS: BMI 21.1
[2018-11-18] MEDS ORDERED: Lorazepam 2 MG/ML VIAL SLOW IVP PRN (12:29)
--- NOTE | 2018-11-18 18:09 | PRG ---
DATE OF SERVICE: 11/18/2018 Malini Painting unfortunately continues to decline. He has now developed anuric renal failure. His echocardiogram shows further decline in his ejection fraction, which appears related to his inoperable vascular disease. I had a long meeting with his son and the patient's this morning and explained that the best option at this point would be supportive care, perhaps removal of mechanical ventilation. They are trying to get Mr. Painting's daughter here from [place] or from out of the country. I wrote a letter actually supporting that effort confirming that Mr. Painting had a terminal illness and he was not expected to survive. His vital signs remained stable. He is still having gas exchange problems and developing metabolic acidosis. His lungs, heart, and abdomen are otherwise unchanged. He will be kept sedated, but I did explain to the patient that if he wanted us to wake him up, so he could talk to his dad, we would be happy to do this. Palliative Care is involved. He is now do not resuscitate patient per my discussion with the son and the Palliative Care Team's discussion with the son. Job ID: [id number]
[2018-11-18] MEDS: Atorvastatin Calcium 40 MG TAB PER TUBE SCH (21:06)
[2018-11-19] MEDS: Cefepime 1 GM in Sodium Chloride 0.9% 100 ML IVPB SCH (00:27)
[2018-11-19] MEDS: guaiFENesin ER 600 MG TAB PO SCH ×2 (00:27→06:23)
[2018-11-19] MEDS: Nitroglycerin 50 MG/250 ML BOT 250 ML IVPB SCH (00:30)
[2018-11-19] MEDS: Propofol 1,000 MG/100 ML VIAL IV PRN (01:19)
[2018-11-19] MEDS: Metoclopramide HCl 10 MG/2 ML VIAL IVP SCH (03:39)
[2018-11-19] MEDS: Insulin Regular 300 UNITS/3 ML VIAL SC PRN (05:14)
[2018-11-19 05:39] LABS: Band 1 % (5-11); Eosinophils 1 % (0-10); Hemoglobin 7.7 g/dL (14.0-18.0); Hypochromia SLIGHT = 6-15 cells (100X) (0-5/hpf); Lymphocytes 6 % (21-51); MDiff Complete? YES; Mean Corpuscular HGB CONC 33.2 g/dL (32.0-36.0); Mean Corpuscular Hemoglobin 29.2 pg (27.0-31.0); Mean Corpuscular Volume 87.9 fL (78.0-98.0); Mean Platelet Volume 8.4 fL (7.4-10.4); Monocytes 3 % (0-10); Neutrophil 89 % (42-75); Platelet Count 401 thou/uL (130-400); Platelet Morphology Comment Appears Adequate; RBC Distribution Width 12.4 % (11.5-14.5); Red Blood Cell (RBC) Count 2.63 mill/uL (4.70-6.10); White Blood Cell (WBC) Count 14.6 thou/uL (4.8-10.8)
[2018-11-19 05:41] LABS: Anion Gap 20 mmol/L (10-20); Calc. Creatinine Clearance 11 mL/min (70-130); Calcium 8.2 mg/dL (7.8-10.44); Carbon Dioxide 14 mmol/L (23-31); Chloride 100 mmol/L (98-107); Estimated GFR-MDRD 9; Glucose 373 mg/dL (80-115); Potassium 4.9 mmol/L (3.5-5.1); Sodium 129 mmol/L (136-145)
[2018-11-19 05:52] LABS: BUN (Urea Nitrogen) 125 mg/dL (8.4-25.7)
[2018-11-19] MEDS ORDERED: Morphine 10 MG/ML VIAL SLOW IVP PRN (08:59)
[2018-11-19 10:09] VITALS: TEMP 99.3
--- NOTE | 2018-11-19 12:22 | PRG ---
DATE OF SERVICE: 11/19/2018 SUBJECTIVE: Mr. Painting remains anuric. He remains sedated for mechanical ventilation. He is tachypneic. Son says that the daughter will not make it here from [place], so they want to consider withdrawal support. He is going to talk to his mom about that. We went over the whole process of placing him on a T collar and making sure he stays comfortable. OBJECTIVE: LUNGS: Unchanged. HEART: Unchanged. ABDOMEN: Unchanged. LABORATORY DATA: His creatinine continues to rise. IMPRESSION: 1. Respiratory failure secondary to progressive congestive heart failure secondary to inoperable coronary artery disease. 2. Acute renal failure, likely a downstream effect of his cardiac catheterization combined with vascular disease and a falling cardiac output. PLAN: Family agrees that we need to focus on comfort, but they are unsure of when they want to consider withdrawing care. We will continue to follow. Job ID: [id number]
[2018-11-19 14:52] VITALS: BP 100/69
[2018-11-19] MEDS: Sodium Chloride 0.9% (PF) 10 ML VIAL FS SCH (16:26)
[2018-11-20] MEDS ORDERED: Cefepime 0.5 GM in Sodium Chloride 0.9% 100 ML IVPB SCH (01:00)
--- NOTE | 2018-11-20 10:42 | DIS ---
DATE OF ADMISSION: 11/02/2018 DATE OF DISCHARGE: 11/19/2018 DISCHARGE DIAGNOSES: 1. Pulmonary edema, respiratory arrest, asystole resulting in , patient was do not resuscitate at that time. 2. Inferior ST-elevation myocardial infarction with troponin of 0.939, no intervention. 3. Severe inoperable three-vessel coronary artery disease. 4. Initial ejection fraction of 45% to 50% fallin to 30% to 35% before . 5. Peripheral vascular disease with severe aortoiliac disease. 6. Chronic kidney disease with initial creatinine of 3.21, which increased to 6.43 with the patient being essentially anuric at the time of . 7. Hypertension. 8. Diabetes, newly diagnosed. 9. Hypercholesterolemia, newly diagnosed. HOSPITAL COURSE: Mr. Painting presented to the emergency room and translation was provided by his son since he doid not speak Latvian. He started complaining of shortness of breath most of the day and then started to have chest pressure and dramatic worsening of his shortness of breath accompanied by diaphoresis. He came to the emergency room, had systolic pressures in the 230 range, heart rate of 100. He had pulmonary edema and was intubated in the emergency room and then taken to the cardiac catheterization lab. He was found to have severe three-vessel coronary artery disease. This was reviewed by Dr. Merino, who also felt that he was inoperable due to his severe diffuse disease. Multiple attempts were made to try to wean him from the ventilator. However, his pressure would significantly increase and he would drop his saturation every time the sedation was turned off. Ultimately, he required tracheostomy and PEG tube placement. He underwent bronchoscopy multiple times with removal of mucus plugging from the right lung. He then had gradual increasing of his creatinine and inability to diurese him. Palliative Care visited with the family and ultimately he was made a do not resuscitate. On the night of November 19, 2018, he became asystolic at 1739 and was pronounced . Job ID: [id number] [facility]
--- NOTE | 2018-11-25 07:05 | PQF ---
FRAN HARDING GORDON G MD [id number] [id number] CLINICAL DOCUMENTATION CLARIFICATION FORM: POST DISCHARGE Addendum to original discharge summary date: ____ Late entry note date: __ DATE: 11/25/2018 ATTN: Ayaz Huston Please exercise your independent, professional judgment in responding to the clarification form. Clinical indicators are provided on the bottom of this form for your review Kindly clarify regarding type and acuity of CHF Please check appropriate box(s): HEART FAILURE: A. TYPE: [ x ] Systolic / HFrEF [ ] Diastolic / HFpEF [ ] Combined Systolic / Diastolic B. ACUITY [x ] Acute [ ] Acute on Chronic [ ] Chronic [ ] Other diagnosis [ ] Unable to determine In addition, please specify: Present on Admission (POA): [x ] Yes [ ] No [ ] Unable to determine For continuity of documentation, please document condition throughout progress notes and discharge summary. Thank You. CLINICAL INDICATORS - SIGNS / SYMPTOMS / LABS Ejection fraction is 45%-50% falling to 30% to 35% before - discharge summary Ejection fraction is 45-50% - ROYCE report dated 11/03 Respiratory failure secondary to progressive CHF - PN dated 11/[address] Henry Congestive heart failure - PN dated 11/05 by Eron Guzmán Congestive heart failure with respiratory failure - PN dated 11/06 by Eron Guzmán Congestive heart failure leading to intubation - PN dated 11/07 by Eron Guzmán Pulmonary edema - H and P, page no.2 RISKS: Severe inoperable three-vessel coronary artery disease - discharge summary CKD - discharge summary Hypertension - discharge summary TREATMENTS: IV Lasix started on 11/02 Medications ROYCE done on 11/03 (This form is maintained as a part of the permanent medical record) 2014 [employer]. All Rights Reserved [email or web address] [phone] CRIS
--- NOTE | 2018-11-25 07:30 | PQF ---
[employer] Crystal Reports Winform ViewerPATEL,GOVINDBHAI AYAZ ARITA MD [id number] [id number] CLINICAL DOCUMENTATION CLARIFICATION FORM: POST DISCHARGE Addendum to original discharge summary date: ____ Late entry note date: __ DATE: 11/25/2018 ATTN: Ayaz Arita Please exercise your independent, professional judgment in responding to the clarification form. Clinical indicators are provided on the bottom of this form for your review Kindly clarify regarding stage of CKD Please check appropriate box(s): [ x] CKD, please specify Stage of CKD__4 [ ] ESRD [ ] Other diagnosis [ ] Unable to determine In addition, please specify: Present on Admission (POA): [x ] Yes [ ] No [ ] Unable to determine National Kidney Foundation Guidelines for CKD Staging Stage I Kidney damage with normal or increased GFRGFR > 90 Stage IIKidney damage with mildly decreased GFRGFR 60-89 Stage III Kidney damage with moderately decreased GFRGFR 30-59 Stage IVKidney damage with severely decreased GFRGFR 16-29 Stage VKidney failureGFR<15 ESRDEnd Stage Renal DiseaseOn dialysis Acute Renal Failure/Acute Kidney Failure defined as: Increases in SCr by (>) 0.3 mg/dl within 48 hours OR- Increases in SCr by (>) 1.5 times baseline, known or presumed to have occurred within the prior 7 days OR- Urine volume < 0.5 ml/kg/hour for 6 hours (KDIGO supplement 2012 for RIFLE/RUSH criteria) For continuity of documentation, please document condition throughout progress notes and discharge summary. Thank You. CLINICAL INDICATORS - SIGNS / SYMPTOMS / LABS CKD with initial creatinine of 3.1, which increased to 6.43 with patient being anuric at the time of - discharge summary Creatinine 3.77 on 11/17, 5.08 on 11/18 and 6.43 on 11/19 [employer] Crystal Reports Winform ViewerRISK FACTORS Hypertension - discharge summary diabetes - discharge summary TREATMENTS: IV fluids from 11/02 to 11/03 - Medications IV Lasix from 11/02 to 11/02 - Medications (This form is maintained as a part of the permanent medical record) 2014 [employer] All Rights Reserved [email or web address] [phone] CRIS
== END 2018-11-19 17:34 | disposition expired | DRG 3 ==
LOC: ERS 18:50 → CCL 19:36 → CCU 20:33
PROVIDERS: ADMIT Internal Medicine Cardiovascular Disease; ATTEND Internal Medicine Cardiovascular Disease
PROC: 5A1955Z Respiratory Ventilation, Greater than 96 Consecutive Hours (ICD-10-PCS; 2018-11-02)
PROC: 4A023N7 Measurement of Cardiac Sampling and Pressure, Left Heart, Percutaneous Approach (ICD-10-PCS; 2018-11-02)
PROC: B2111ZZ Fluoroscopy of Multiple Coronary Arteries using Low Osmolar Contrast (ICD-10-PCS; 2018-11-02)
PROC: 0B9K8ZZ Drainage of Right Lung, Via Natural or Artificial Opening Endoscopic (ICD-10-PCS; 2018-11-08)
PROC: 0B938ZZ Drainage of Right Main Bronchus, Via Natural or Artificial Opening Endoscopic (ICD-10-PCS; 2018-11-08)
PROC: 0BC68ZZ Extirpation of Matter from Right Lower Lobe Bronchus, Via Natural or Artificial Opening Endoscopic (ICD-10-PCS; 2018-11-09)
PROC: 0BC58ZZ Extirpation of Matter from Right Middle Lobe Bronchus, Via Natural or Artificial Opening Endoscopic (ICD-10-PCS; 2018-11-09)
PROC: 0B110F4 Bypass Trachea to Cutaneous with Tracheostomy Device, Open Approach (ICD-10-PCS; principal; 2018-11-13)
PROC: 0B21XEZ Change Endotracheal Airway in Trachea, External Approach (ICD-10-PCS; 2018-11-13)
PROC: 0DH63UZ Insertion of Feeding Device into Stomach, Percutaneous Approach (ICD-10-PCS; 2018-11-13)
PROC: 0BC38ZZ Extirpation of Matter from Right Main Bronchus, Via Natural or Artificial Opening Endoscopic (ICD-10-PCS; 2018-11-14)
PROC: 0B968ZZ Drainage of Right Lower Lobe Bronchus, Via Natural or Artificial Opening Endoscopic (ICD-10-PCS; 2018-11-14)
PROC: 0B958ZZ Drainage of Right Middle Lobe Bronchus, Via Natural or Artificial Opening Endoscopic (ICD-10-PCS; 2018-11-14)
DX: I21.19 ST elevation (STEMI) myocardial infarction involving other coronary artery of inferior wall (principal); J96.00 Acute respiratory failure, unspecified whether with hypoxia or hypercapnia; I50.21 Acute systolic (congestive) heart failure; E87.2 Acidosis; J98.11 Atelectasis; T17.590A Other foreign object in bronchus causing asphyxiation, initial encounter; R57.9 Shock, unspecified; N17.9 Acute kidney failure, unspecified; E46 Unspecified protein-calorie malnutrition; I13.0 Hypertensive heart and chronic kidney disease with heart failure and stage 1 through stage 4 chronic kidney disease, or unspecified chronic kidney disease; N18.4 Chronic kidney disease, stage 4 (severe); Z66 Do not resuscitate; I46.9 Cardiac arrest, cause unspecified; Z51.5 Encounter for palliative care; I25.10 Atherosclerotic heart disease of native coronary artery without angina pectoris; I77.9 Disorder of arteries and arterioles, unspecified; I73.9 Peripheral vascular disease, unspecified; R45.1 Restlessness and agitation; E78.00 Pure hypercholesterolemia, unspecified; E11.22 Type 2 diabetes mellitus with diabetic chronic kidney disease; E11.65 Type 2 diabetes mellitus with hyperglycemia; Z90.49 Acquired absence of other specified parts of digestive tract; Z87.891 Personal history of nicotine dependence; Z68.21 Body mass index [BMI] 21.0-21.9, adult
CPT/HCPCS: 31500; 36415; 36416; 43752; 51702; 71045; 80048; 80053; 80061; 82550; 82805; 83036; 84484; 85025; 85347; 85610; 85730; 87070; 87205; 93005; 93010; 93306; 93454; 94002; 94003; 94640; 96365; 96368; 96375; 99152; C1769; C9113; J0670; J0692; J0696; J1644; J1650; J1815; J1940; J2001; J2060; J2250; J2270; J2704; J2765; J2930; J3010; J3490; J7620; Q9967